=== PATIENT | male | born 1965 | race Caucasian/White ===

== ENCOUNTER → 2017-08-26 | Outpatient (CLI) | payer BC ==
[~2017-08-26] MED LIST: RT ADVAIR 228 DISKUS IH
== END ==
LOC: COL.LAB 15:06
DX: Z01.812 Encounter for preprocedural laboratory examination (principal)

== ENCOUNTER 2018-12-13 01:19 | Inpatient (IN) | payer BC ==
[~2018-12-13] VITALS: Ht 172.7 cm; Wt 90.0 kg
[2018-12-13] VITALS (17 sets, daily range): BP systolic 80–100; BP diastolic 48–63; PULSE 65–93; TEMP 70–99.7
[2018-12-13] MEDS ORDERED: LEVAQUIN 5500 MG/TA1 PO (01:30)
[2018-12-13] MEDS ORDERED: [UNRECOGNIZED DRUG - CODE] (01:31)
[2018-12-13] MEDS ORDERED: TRELEGY ELLIPT1 EACH IH (01:56)
[2018-12-13 01:59] LABS: MEAN CELL VOLUME 86 fl (80.0-100.0); MEAN CORPUSCULAR HGB CONC 32 g/dl (33.0-37.0); MEAN PLATELET VOLUME 9.1 fl (7.4-10.4); PLATELET COUNT 298 K/mm3 (130-400); RED BLOOD COUNT 2.73 M/mm3 (4.20-5.60); REDCELL DISTRIBUTION WIDTH-CV 15.1 % (11.5-14.5)
[2018-12-13 02:01] LABS: HEMATOCRIT 23.6 % (42.0-52.0); HEMOGLOBIN 7.6 g/dl (13.5-18.0); MEAN CORPUSCULAR HEMOGLOBIN 28 pg (27.0-31.0)
[2018-12-13 02:11] LABS: ALBUMIN 3.2 gm/dL (3.5-5.0); BILIRUBIN,TOTAL 0.2 mg/dL (0.0-1.0); CALCIUM 8.7 mg/dL (8.4-10.2); CREATININE, serum 1.39 (0.66-1.25); POTASSIUM 3.8 mmol/L (3.4-5.0); TOTAL PROTEIN 6.2 gm/dL (6.4-8.2)
[2018-12-13 02:27] LABS: BAND 12 % (0-10); BASOPHIL 1 % (0-2); EOSINOPHIL 5 % (0-4); LYMPHOCYTE 11 % (20.0-51.0); NEUTROPHILS 70 % (42.0-75.2)
[2018-12-13 02:28] LABS: HYPOCHROMIA 1+; PLATELET ESTIMATE NORMAL (NORMAL)
[2018-12-13 02:37] LABS: C-REACTIVE PROTEIN 30.8 mg/dL (0.0-0.9); ERYTHROCYTE SEDIMENTATION RATE 73 mm/hr (0-30)
[2018-12-13 03:57] LABS: COLLECTION METHOD CLEAN CATCH
[2018-12-13 04:11] LABS: MUCOUS Present /lpf; PH 5 (5-8); SQUAMOUS EPITHELIAL 0-2 /hpf; URINE APPEARANCE Clear; URINE BACTERIA None Seen /hpf; URINE BILIRUBIN Negative (NEGATIVE); URINE BLOOD Negative (NEGATIVE); URINE COLOR Yellow; URINE GLUCOSE Negative (NEGATIVE); URINE KETONE Negative (NEGATIVE); URINE LEUKOCYTE ESTERASE Negative (NEGATIVE); URINE NITRATE Negative (NEGATIVE); URINE PROTEIN(semi-quant) Negative (NEGATIVE); URINE RBC 0-2 /hpf; URINE UROBILINOGEN Negative (NEGATIVE)
--- NOTE | 2018-12-13 07:30 | NUR ---
PATIENT IS A&O. NOTED LOW B/P IN THE 80'S SYSTOLIC. NO TACHYCARDIA. AFEBRILE. 02 AT 4L PER NC WITH SATS IN UPPER 90'S. PATIENT IS SOB WITH ACTIVITY. PALE COLOR AND DIAPHORETIC. AM HGB OF 7.0. PATIENT REPORTS FEELING WEAK, TIRED AND CRAPPY. HOSPITALIST NOTIFIED. HEAD TO TOE ASSESSMENT COMPLETE. RIGHT HIP IS RED, SWOLLEN & TENDER TO TOUCH. NOTED PURULENT DRAINAGE, APPLIED NEW ABD & PAPER TAPE. POSITIVE PEDAL PULSES. PATIENT AMBULATES WITH STAND BY ASSIST. GIRLFRIEND AT BEDSIDE. NO OTHER NEEDS. CALL LIGHT IN REACH.
--- NOTE | 2018-12-13 09:00 | NUR ---
HOSPITALIST TEAM ROUNDING. SEE ORDERS.
--- NOTE | 2018-12-13 13:00 | NUR ---
BLOOD TRANSFUSION STARTED PER ORDERS. NOTED B/P OF 81/50. PATIENT ON 4L PER NC WITH SATS NOW AT 98%. DECREASED O2 TO 3L PER NC. OTHER VSS. PATIENT TOLERATING TRANSFUSION WELL SO FAR. FAMILY AT BEDSIDE.
[2018-12-13 16:01] LABS: HEMATOCRIT 22.6 % (42.0-52.0); HEMOGLOBIN 7.3 g/dl (13.5-18.0)
--- NOTE | 2018-12-13 17:30 | NUR ---
NOTED RIGHT HIP ABD TO HAVE MODERATE PURULENT DRAINAGE. APPLIED NEW ABD WITH PAPER TAPE. HIP SPIKA APPLIED FOR COMPRESSION. RIGHT HIP IS STILL VERY RED, SWOLLEN AND TENDER TO TOUCH. PATIENT RESTING UP IN BED. MOTHER AT BEDSIDE.
--- NOTE | 2018-12-13 18:25 | NUR ---
PATIENT VOIDED 300CC OF CLAY COLORED URINE USING URINAL AT BEDSIDE. PATIENT IS SOB FROM GETTING TO BEDSIDE AND REPOSITIONING HIMSELF BACK UP INTO BED. SATS IN LOW 90'S ON 3-4L PER NC, HR AT 103 WITH MINIMAL ACTIVITY. PATIENT IS C/O CHILLS. AFEBRILE. WARM BLANKETS APPLIED. IV ABX INFUSING. WILL MONITOR.
--- NOTE | 2018-12-13 19:20 | NUR ---
Report received from Barbie POLLOCK. Pt sitting up in bed. Family at bedside. Pt c/o generally feeling unwell. Denies specific pain, but states he has a baseline of "low grade" pain. Pt requesting Motrin. Pt also c/o chills. Pts temperature is 99.6 orally. Respirations are even and unlabored at rest. O2@ 4L via NC- Spo2 is 96%. Lungs are clear to auscultation. Heart rhythm and rte within normal limits. BS+. Abdomen is distended, but nontender. IVF infusing to L AC IV site. R hip dressing- ABD pad with paper tape and Hip Spika in place- purulent drainage noted to ABD pad. Pt denies further needs at this time.
--- NOTE | 2018-12-13 19:25 | NUR ---
Pt and family educated about getting second unit of blood per MD order. Pt educated to report any signs of transfusion reaction. Pt verbalized understanding. No questions noted. Blood consent form signed and witnessed.
--- NOTE | 2018-12-13 20:10 | NUR ---
Blood intiated per protocol. Verified with Marga POLLOCK. Initial VS recorded. Will stay in room for first 15 minutes.
--- NOTE | 2018-12-13 20:25 | NUR ---
Pt VSS after first 15 minutes of blood transfusion. Pts temperature is still slightly elevated at 99.5. Pt reports that chills have resolved, however. Pt denies pain or any other symptoms. Will continue to monitor. Blood infusion rate increased.
--- NOTE | 2018-12-13 21:00 | NUR ---
Pt continues to deny any symptoms with the blood transfusion. VSS. R hip dressing changed. Old R hip hip incision is weeping serous and purulent drainage. R hip hot to touch and very reddened. New ABD pad applied- secured with paper tape and hip spika. No further needs noted at this time.
--- NOTE | 2018-12-13 21:50 | NUR ---
Pt called out requesting to know his lab values. He is on the phone with a friend he identifies as a fellow MD. MD on phone is upset of patients care and that patient was not taken in for an I&D on his hip. The patient and family are concerned that the patients lab values indicate a "bad infection". Nurse provided reassurance that patient is receiving antibiotics. Pt and family requesting that the doctor csm consultant be contacted.
--- NOTE | 2018-12-13 21:55 | NUR ---
Suleiman TO called from auction block clerk calendar. Voicemail left.
--- NOTE | 2018-12-13 22:05 | NUR ---
Melanie VALADEZ contacted about patients concerns and to make her aware of the situation. Melanie told me to continue to try to get a hold of Orthopedics.
--- NOTE | 2018-12-13 22:07 | NUR ---
Suleiman TO returned phone call. He stated that the warehouse distribution associate calendar was incorrect and gave me the correct contact information.
--- NOTE | 2018-12-13 22:20 | NUR ---
Colton TO contacted about patients concerns. He stated that he would pass the information along and that the patient would be seen in the AM.
--- NOTE | 2018-12-13 22:23 | NUR ---
Second unit of PRBCs complete. No reaction noted. VSS. Well tolerated by patient. Patient also made aware of conversations with Orthopedics and Hospitalists. Patient and family verbalize understanding. No questions. Will continue to monitor.
[2018-12-14] VITALS (13 sets, daily range): BP systolic 83–144; BP diastolic 43–66; PULSE 67–96; TEMP 97.6–98.7
[2018-12-14 00:30] LABS: MEAN CELL VOLUME 87 fl (80.0-100.0); MEAN CORPUSCULAR HGB CONC 32 g/dl (33.0-37.0); MEAN PLATELET VOLUME 9.9 fl (7.4-10.4); PLATELET COUNT 331 K/mm3 (130-400); RED BLOOD COUNT 2.94 M/mm3 (4.20-5.60); REDCELL DISTRIBUTION WIDTH-CV 14.9 % (11.5-14.5)
[2018-12-14 00:32] LABS: HEMATOCRIT 25.5 % (42.0-52.0); HEMOGLOBIN 8.2 g/dl (13.5-18.0); MEAN CORPUSCULAR HEMOGLOBIN 28 pg (27.0-31.0)
--- NOTE | 2018-12-14 00:39 | NUR ---
Post tranfusion H&H results called to Melanie VALADEZ. No orders received.
[2018-12-14 01:16] LABS: BAND 26 % (0-10); EOSINOPHIL 4 % (0-4); LYMPHOCYTE 10 % (20.0-51.0); METAMYELOCYTE 1 % (0-0); NEUTROPHILS 52 % (42.0-75.2); PLATELET ESTIMATE NORMAL (NORMAL)
[2018-12-14 01:17] LABS: OVALOCYTES 1+
--- NOTE | 2018-12-14 03:40 | NUR ---
Pt resting in bed. Girlfriend at beside. VSS. Pt c/o headache 08/29-requesting motrin. No further needs noted.
--- NOTE | 2018-12-14 06:20 | NUR ---
Pt sleeping this AM. Girlfriend at bedside. No distress noted.
--- NOTE | 2018-12-14 06:50 | NUR ---
Report given to Janna POLLOCK. Upon entering pts room for bedside handoff, pt is sitting with HOB elevated. IV catheter is sitting on floor to the right of the bed. Catheter is intact. IVF are infusing onto the floor. Girlfriend at bedside states she just checked on him and it was ok. Bedding is also wet. Bed linens changed.
--- NOTE | 2018-12-14 07:00 | NUR ---
Supplies gathered to start new IV site on patient. Pt refuses IV start. States that he "doesn't need an IV yet". Pt states "if the doctor doesn't cut my hip open today, I am going home" and "I don't need to be here, if they aren't going to fix me and my hemoglobin is up". Pt states he is "just being rational". Pt requests to wait until MD rounds this AM and "decisions are made". Pt denies further needs. Passed on to Janna POLLOCK.
--- NOTE | 2018-12-14 07:27 | NUR ---
Dr Machado here to see patient.
--- NOTE | 2018-12-14 07:30 | NUR ---
Patient alert and oriented, answers questions appropriately. See assessment. Right hip with dressing clean, dry and intact. Neuros intact to RLE, pulses palpable. Able to bear weight to RLE. Patient continues to refuse IV restart, also wishes dressing to RLE not be changed at this time. No c/o pain or discomfort.
[2018-12-14 07:43] LABS: BASO % 0.3 % (0.0-2.0); EOS # 0.4 (0.0-0.7); GRAN # 4.2 (1.4-6.5); MEAN CELL VOLUME 87 fl (80.0-100.0); MEAN CORPUSCULAR HGB CONC 32 g/dl (33.0-37.0); MONO # 0.6 (0.1-0.6); MONO % 10.2 % (1.7-9.3); PLATELET COUNT 362 K/mm3 (130-400); RED BLOOD COUNT 3.07 M/mm3 (4.20-5.60)
[2018-12-14 07:47] LABS: HEMATOCRIT 26.6 % (42.0-52.0); HEMOGLOBIN 8.5 g/dl (13.5-18.0); MEAN CORPUSCULAR HEMOGLOBIN 28 pg (27.0-31.0)
[2018-12-14 07:50] LABS: CALCIUM 8.5 mg/dL (8.4-10.2); CREATININE, serum 1.01 (0.66-1.25); POTASSIUM 4.1 mmol/L (3.4-5.0)
--- NOTE | 2018-12-14 09:13 | NUR ---
ZENY met with the patient and patient's sister, Roro Maldonado, to discuss discharge plan. The patient lives in [place] with his girlfriend. He reports independence with ADLs and has crutches. 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 He receives his medications at [facility] and he reports no difficulties obtaining his meds. The patient does not have advanced directives in EMR, but he states that he does have them completed and that his DPOA-HC is his sister, Roro Maldonado. The patient plans to return home upon discharge. No additional needs at this time.
--- NOTE | 2018-12-14 11:16 | NUR ---
First visit from the youth worker. No needs right now.
--- NOTE | 2018-12-14 17:50 | NUR ---
Patient returns from PACU. Assessment unchanged except incision to right hip with Aquacel clean, dry and intact. Neuros intact to RLE, pulses palpable, no numbness or tingling noted. No c/o at this time.
--- NOTE | 2018-12-14 20:08 | NUR ---
Patient awake, numbness to lower extremities reported. Has IV antibiotic infusing to right forearm site without redness or swelling. Has oxygen on at 4L/nc. Dressing Aquacel to right hip D/I. SCD's on bilateral lower extremities. Family/friends at bedside.
--- NOTE | 2018-12-14 21:00 | NUR ---
Patient eating at this time. Reports numbness to bilateral lower legs. Does not want his Senna tonight.
--- NOTE | 2018-12-14 23:15 | NUR ---
Patient moving both feet, reports mild numbness remains. Oxygen turned down to 2L/nc. Reports he hasn't voided yet and has hx of needing straight cath after surgeries. IVF continue at 100cc/hr.
[2018-12-15] VITALS (11 sets, daily range): BP systolic 88–124; BP diastolic 47–65; PULSE 56–68; TEMP 97.4–98.3
--- NOTE | 2018-12-15 01:55 | NUR ---
BLADDER SCANNED FOR 748, PATIENT WANTS TO WAIT ON THE STRAIGHT CATH AT THIS TIME.
--- NOTE | 2018-12-15 02:30 | NUR ---
STRAIGHT CATH PERFORMED, RETURN OF 1000CC OF YELLOW URINE. PT TOLERATED WITHOUT PROBLEM.
--- NOTE | 2018-12-15 04:00 | NUR ---
Patient resting in bed. IV antibiotic infusing to right forearm site without redness or swelling. Denies need for pain meds at this time.
[2018-12-15 05:33] LABS: BASO % 0.2 % (0.0-2.0); GRAN # 3.9 (1.4-6.5); GRAN % 81.5 % (42.2-75.2); LYMPH # 0.3 (1.2-3.4); LYMPH % 6.8 % (20.0-51.0); MEAN CELL VOLUME 86 fl (80.0-100.0); MEAN CORPUSCULAR HGB CONC 32 g/dl (33.0-37.0); MONO # 0.5 (0.1-0.6); MONO % 10.4 % (1.7-9.3); PLATELET COUNT 318 K/mm3 (130-400); RED BLOOD COUNT 2.44 M/mm3 (4.20-5.60); REDCELL DISTRIBUTION WIDTH-CV 14.9 % (11.5-14.5)
[2018-12-15 05:35] LABS: CREATININE, serum 1.16 (0.66-1.25); POTASSIUM 4.1 mmol/L (3.4-5.0)
[2018-12-15 05:46] LABS: C-REACTIVE PROTEIN 19.9 mg/dL (0.0-0.9)
[2018-12-15 05:52] LABS: HEMOGLOBIN 6.8 g/dl (13.5-18.0); MEAN CORPUSCULAR HEMOGLOBIN 28 pg (27.0-31.0)
--- NOTE | 2018-12-15 05:57 | NUR ---
Notified Deric FERNANDEZ of patients HGB 6.8, orders for 1 unit of PRBC's given.
--- NOTE | 2018-12-15 08:00 | NUR ---
PATIENT IS DROWSY THIS MORNING BUT AROUSES EASILY TO NAME. PATIENT IS A&OX4. BP LOW, OTHERWISE VSS. PATIENT PALE AND STATES THAT HE FEELS WEAK. BOWEL SOUNDS ACTIVE ALL FOUR QUADRANTS. PATIENT TOLERATING DIET WITHOUT ANY COMPLAINTS OF N/V. POSITIVE PEDAL PULSES EQUAL BILATERALLY. 1+ PITTING-EDEMA TO BLE. CAP REFILL <3 SECONDS. CMS INTACT. SCD'S TO BLE. LEFT UPPER LUNG LOBES DIMINISHED UPON AUSCULTATION. ALL OTHER LUNG BANGURA CLEAR. PATIENT DENIES SHORTNESS OF BREATH OR A PRODUCTIVE COUGH. ABDOMEN IS DISTENDED BUT SOFT TO PALPATION. PATIENT PASSING FLATUS. ERYTHEMA TO RIGHT HIP NOTED. AQUACEL TO RIGHT HIP IS CD&I. IV FLUIDS INFUSING TO RIGHT FOREARM IV. CALL LIGHT WITHIN REACH. PRESENT AT THE BEDSIDE. PATIENT DENIES ANY NEEDS AT THIS TIME.
--- NOTE | 2018-12-15 09:00 | NUR ---
DR. ADDISON CALLED AND NOTIFIED OF ID CONSULT. NO ORDERS GIVEN AT THIS TIME.
--- NOTE | 2018-12-15 10:05 | NUR ---
CRITICAL VANCOMYCIN RESULT OF 25.81 CALLED TO YOUSUF CASEY. NO ORDERS GIVEN AT THIS TIME.
--- NOTE | 2018-12-15 10:15 | NUR ---
PATIENT STATES THAT HE FEELS THE URGE TO URINATE. PATIENT ATTEMPTED TO VOID IN THE URINAL WITHOUT SUCCESS. PATIENT BLADDER SCANNED. 999 MLS OF URINE PRESENT IN BLADDER. YOUSUF CASEY CALLED AND NOTIFIED OF BLADDER SCAN. ORDERS GIVEN TO STRAIGHT CATH PATIENT NOW TORB YOUSUF CASEY TO THIS NURSE.
--- NOTE | 2018-12-15 10:26 | NUR ---
PATIENT'S UNIT OF PRBC STARTED AND INFUSING TO PATIENT'S RIGHT FOREARM IV AT 60 MLS/HR. THIS NURSE PRESENT AT THE BEDSIDE FOR THE FIRST 15 MINUTES. PATIENT TOLERATING WELL. PATIENT DENIES ANY COMPLAINTS OF ADVERSE REACTION. WILL CONTINUE TO MONITOR.
--- NOTE | 2018-12-15 10:40 | NUR ---
PATIENT STRAIGHT CATHETERIZED VIA STERILE TECHNIQUE PER ORDERS FOR POST-OPERATIVE URINARY RETENTION. 1150 MLS OF CLEAR, PALE-YELLOW URINE RETURNED. PATIENT TOLERATED WELL.
--- NOTE | 2018-12-15 10:50 | NUR ---
PATIENT TOLERATING BLOOD TRANSFUSION WITHOUT ANY COMPLAINTS OF ADVERSE REACTIONS. INFUSION RATE INCREASED FROM 60 MLS/HR TO 125 MLS/HR.
--- NOTE | 2018-12-15 11:06 | NUR ---
PATIENT BLADDER SCANNED POST-STRAIGHT CATH. 168 MLS OF RESIDUAL URINE PRESENT IN BLADDER. YOUSUF CASEY CALLED AND NOTIFIED OF 1150 MLS OF URINE REMOVED DURING STRAIGHT CATH AND POST-CATH RESIDUAL. NO ORDERS GIVEN AT THIS TIME. WILL CONTINUE TO MONITOR.
--- NOTE | 2018-12-15 14:17 | NUR ---
PATIENT VOIDED 250 MLS OF CLEAR, PALE-YELLOW URINE POST STRAIGHT CATH. PATIENT BLADDER SCANNED FOR POST-VOID RESIDUAL. 184 MLS OF RESIDUAL URINE SCANNED IN BLADDER. YOUSUF CASEY NOTIFIED. NO ORDERS GIVEN AT THIS TIME. WILL CONTINUE TO MONITOR.
[2018-12-15 15:47] LABS: HEMATOCRIT 24.5 % (42.0-52.0); HEMOGLOBIN 7.9 g/dl (13.5-18.0)
--- NOTE | 2018-12-15 19:44 | NUR ---
REPORT GIVEN TO MARIS MUNOZ.
--- NOTE | 2018-12-15 20:30 | NUR ---
Patient rests in bed. Significant other present along with several visitors. Patient denies pain. Right hip dressing CDI. Right hip and thigh swollen/tight and encouraged ice and elevation. Ice pack and extra pillows given. Patient reports abdominal distention and voided 500mls clear yellow urine in urinal. Reports relief afterwards/declines PVR with bladder scan. Pepsi given.
--- NOTE | 2018-12-15 22:00 | NUR ---
HS meds all reviewed and given. Denies need for pain med. Transferred self to chair for awhile and significant other straightening linens and placed pillows for comfort on mattress. Patient transfers self without problems back to bed.
--- NOTE | 2018-12-16 02:00 | NUR ---
Patient called and reports something is wrong with his IV. Bing POLLOCK into see patient and noted IV RFA infiltrated slight redness and edema. IV dc'd without problems catheter tip intact and warm moist pack given but patient declined even with much encouragement. Reports bloated feeling and milk of mag given per patient request. Voided 500mls clear yellow urine and emptied. Encouraged elevation above heart and ice pack and patient declines.
[2018-12-16 04:54] VITALS: BP 100/54; PULSE 65; TEMP 97.9
[2018-12-16 05:34] LABS: CALCIUM 7.9 mg/dL (8.4-10.2); CREATININE, serum 1.29 (0.66-1.25); POTASSIUM 3.8 mmol/L (3.4-5.0)
[2018-12-16 05:37] LABS: MEAN CELL VOLUME 88 fl (80.0-100.0); MEAN CORPUSCULAR HGB CONC 32 g/dl (33.0-37.0); PLATELET COUNT 336 K/mm3 (130-400); RED BLOOD COUNT 2.66 M/mm3 (4.20-5.60); REDCELL DISTRIBUTION WIDTH-CV 15.1 % (11.5-14.5)
[2018-12-16 05:38] LABS: HEMATOCRIT 23.4 % (42.0-52.0); HEMOGLOBIN 7.5 g/dl (13.5-18.0); MEAN CORPUSCULAR HEMOGLOBIN 28 pg (27.0-31.0)
--- NOTE | 2018-12-16 06:09 | NUR ---
Patient rests on left side with eyes closed. Respirations with ease. Has denied need for pain med through the night. Juan R POLLOCKcustodial supervisor restarted 20 gauge IV to without problems.
--- NOTE | 2018-12-16 06:11 | NUR ---
Slight swelling noted to previous IV site RFA but no redness or pain.
[2018-12-16 07:20] VITALS: BP 96/53; PULSE 72; TEMP 97.9
[2018-12-16 11:27] LABS: BAND 5 % (0-10); EOSINOPHIL 8 % (0-4); HYPOCHROMIA 1+; LYMPHOCYTE 37 % (20.0-51.0); NEUTROPHILS 45 % (42.0-75.2); PLATELET ESTIMATE NORMAL (NORMAL)
[2018-12-16 12:46] VITALS: BP 114/64; PULSE 75; TEMP 97.9
[2018-12-16 19:26] VITALS: BP 126/65; PULSE 64; TEMP 97.5
--- NOTE | 2018-12-16 19:30 | NUR ---
END OF SHIFT NOTE. UPON ENTRY INTO THE PATIENT IS DROWSY AND RESTING IN BED. PATIENT AROUSES EASILY TO NAME. PATIENT IS A&OX4. VSS. ALL RIGHT LUNG BANGURA CLEAR UPON AUSCULTATION. ALL LEFT LUNG BANGURA DIMINISHED UPON AUSCULTATION. PATIENT DENIES SOB OR A PRODUCTIVE COUGH. BOWEL SOUNDS ACTIVE ALL FOUR QUADRANTS. PATIENT REFUSING MEALS THROUGHOUT DY SHIFT. PATIENT DENIES ANY COMPLAINTS OF N/V. ABDOMEN IS SLIGHTLY DISTENDED, BUT SOFT TO PALPATION. PATIENT REPORTS PASSING FLATUS AND IS HAVING BOWEL MOVEMENTS. PATIENT VOIDING PER URINAL WITHOUT ANY DIFFICULTIES. RIGHT HIP INCISION DRESSED WITH AN AQUACEL DRESSING WITH SCANT AMOUNT OF BLOODY SHADING PRESENT. ERYTHEMA NOTED AROUND AQUACEL DRESSING. ERYTHEMA IMPROVED FROM ASSESSMENT YESTERDAY AM. PATIENT'S RIGHT HIP AND UPPER LEG EDEMATOUS. 1+ PITTING-EDEMA TO RIGHT FOOT NOTED. NON-PITTING EDEMA TO LEFT FOOT. POSITIVE PEDAL PULSES EQUAL BILATERALLY. CAP REFILL <3 SECONDS. CMS INTACT. AYDE HOSE AND SCD'S TO BLE. PATIENT TEACHING COMPLETED ON THE USE OF ICE FOR THE RIGHT HIP AND ELEVATING THE EXTREMITY ON PILLOWS TO REDUCE SWELLING, PATIENT REFUSED. PATIENT STATES THAT HE FEELS WEAK THIS AM. IV FLUIDS INFUSING TO LEFT HAND IV VIA PUMP. PATIENT DENIES COMPLAINTS OF PAIN THROUGHOUT THE SHIFT. FAMILY PRESENT OFF AND ON DURING AM SHIFT. CALL LIGHT WITHIN REACH. REPORT GIVEN TO MARIS VALENTIN.
--- NOTE | 2018-12-16 20:00 | NUR ---
PT IN BED WITH HOB ELEVATED TO 45 DEGREE ANGLE. PT HAS C/O CONSTIPATION. PT'S RIGHT HIP AREA AQUACELL HAS LARGE AMOUNT OF DRAINAGE. DAYSHIFT NURSE STATED THAT IT IS QUIT ABITE MORE THAN EARLIER THIS SHIFT. RLE HAS 2+ EDEMA. PT DENIES PAIN OR DISCOMFORT FROM HIS RLE. NO NEEDS AT THIS TIME. CALL LIGHT WITHIN REACH.
--- NOTE | 2018-12-16 22:40 | NUR ---
PT'S DRSG ON RIGHT HIP WAS CHANGED. PT HAD A LARGE AMOUNT OF SANGUINEOUS DRAINAGE AND MOST OF THE STERI-STRIPS WERE INTACT. PT WAS GIVEN AN ENEMA EARLIER PER PT REQUEST FOR CONSTIPATION AND PT AMBULATED TO BATHROOM AND BACK TO BED. PT ADVISED THAT HE HAD A LARGE BM AND FEELS MUCH BETTER NOW. PT IN BED WITH HOB ELEVATED TO 45 DEGREE ANGLE. GIRLFRIEND AT BEDSIDE. CALL LIGHT WITHIN REACH.
[2018-12-16 23:53] VITALS: BP 100/60; PULSE 73; TEMP 98.5
[2018-12-17 04:02] VITALS: BP 96/52; PULSE 71; TEMP 98.8
--- NOTE | 2018-12-17 04:28 | NUR ---
PT SLEEP/RESTING WELL. PT HAD NASAL CANULA OUT OF NOSE; AND CHECKED O2 SATs AND O2 SATs AT 88% ON RA. PUT NASAL CANULA BACK INTO NOSTRILS AND O2 SATs WENT UP TO 92%. PT SOFTLY SNORES. PT BRIEFLY AWAKENED AND CLOSED BOTH EYES. PT HAS NO S/S OF PAIN OR DISCOMFORT, CALL LIGHT WITHIN REACH AND GIRLFRIEND BY SIDE.
[2018-12-17 05:30] LABS: BASO % 0.4 % (0.0-2.0); EOS # 0.4 (0.0-0.7); EOS % 6.4 % (0-4.0); GRAN # 3.5 (1.4-6.5); LYMPH % 17.5 % (20.0-51.0); MEAN CELL VOLUME 88 fl (80.0-100.0); MEAN CORPUSCULAR HGB CONC 32 g/dl (33.0-37.0); MEAN PLATELET VOLUME 9.5 fl (7.4-10.4); MONO # 0.7 (0.1-0.6); MONO % 11.6 % (1.7-9.3); PLATELET COUNT 344 K/mm3 (130-400); RED BLOOD COUNT 2.57 M/mm3 (4.20-5.60); REDCELL DISTRIBUTION WIDTH-CV 15.4 % (11.5-14.5)
[2018-12-17 05:41] LABS: C-REACTIVE PROTEIN 7.5 mg/dL (0.0-0.9); CREATININE, serum 1.17 (0.66-1.25); POTASSIUM 3.8 mmol/L (3.4-5.0)
[2018-12-17 05:42] LABS: HEMATOCRIT 22.6 % (42.0-52.0); HEMOGLOBIN 7.3 g/dl (13.5-18.0); MEAN CORPUSCULAR HEMOGLOBIN 28 pg (27.0-31.0)
[2018-12-17] MEDS ORDERED: CELEBREX 200MG200 MG PO (07:25)
[2018-12-17] MEDS ORDERED: ASPI325T6 PO (07:25)
--- NOTE | 2018-12-17 07:30 | NUR ---
THIS NURSE NOTIFIED THAT THE PATIENT IS BLEEDING THROUGH HIS AQAUCEL DRESSING. DRESSING REMOVED. EDGES WELL APPROXIMATED. DISTAL PORTION OF RIGHT HIP INCISON PALPATED AND BLED UPON PALPATION. 4X4 GAUZE & CYNTHIA WRAP APPLIED. YOUSUF SR CALLED AND MESSAGE LEFT. WILL WAIT FOR RESPONSE FROM PHYSICIAN WITH ORDERS. WILL CONTINUE TO MONITOR BLEEDING FROM RIGHT HIP INCISION.
--- NOTE | 2018-12-17 08:00 | NUR ---
UPON ENTRY INTO THE PATIENT IS DROWSY AND RESTING IN BED. PATIENT AROUSES EASILY TO NAME. PATIENT IS A&OX4. VSS. ALL RIGHT LUNG BANGURA AND LEFT UPPER LUNG LOBE CLEAR UPON AUSCULTATION. LEFT LUNG BASE DIMINISHED UPON AUSCULTATION. PATIENT DENIES SOB OR A PRODUCTIVE COUGH. BOWEL SOUNDS ACTIVE ALL FOUR QUADRANTS. PATIENT REFUSING MEALS THROUGHOUT THE SHIFT. PATIENT STATES THAT HE FEELS NAUSEATED BUT DENIES ANY COMPLAINTS OF VOMITING. ANTIEMETICS OFFERED AND REFUSED. ABDOMEN IS SLIGHTLY DISTENDED, BUT SOFT TO PALPATION. PATIENT REPORTS PASSING FLATUS AND IS HAVING BOWEL MOVEMENTS. PATIENT VOIDING PER URINAL WITHOUT ANY DIFFICULTIES. RIGHT HIP INCISION DRESSED WITH AN AQUACEL DRESSING WITH LARGE AMOUNTS OF BLOODY, SEEPING DRAINAGE PRESENT. ERYTHEMA NOTED AROUND AQUACEL DRESSING. AQUACEL DRESSING REMOVED AND REPLACED WITH 4X4 GAUZE, ABD PADS AND LARGE CYNTHIA WRAP PER ORTHO ORDERS. PATIENT'S RIGHT HIP AND RLE EDEMATOUS. 2+ PITTING-EDEMA TO RIGHT FOOT NOTED. NON-PITTING EDEMA TO BUE NOTED. POSITIVE PEDAL PULSES EQUAL BILATERALLY. CAP REFILL <3 SECONDS. CMS INTACT. AYDE JONN AND SCD'S TO BLE. PATIENT TEACHING COMPLETED ON THE USE OF ICE FOR THE RIGHT HIP AND ELEVATING THE EXTREMITY ON PILLOWS TO REDUCE SWELLING, PATIENT ALLOWED INTERVENTION THIS AM. PATIENT STATES THAT HE FEELS WEAK. PICC TO RUE. FAMILY AND FRIENDS PRESENT AT THE BEDSIDE THIS AM. PATIENT DENIES COMPLAINTS OF PAIN. CALL LIGHT WITHIN REACH. NO OTHER NEEDS AT THIS TIME.
[2018-12-17] MEDS ORDERED: CEFAZOLIN SODI100 ML IV (08:01)
[2018-12-17] MEDS ORDERED: NATURAL IRON65 MG PO (08:03)
[2018-12-17 08:36] VITALS: BP 118/67; PULSE 65; TEMP 97.9
[2018-12-17 12:27] VITALS: BP 115/61; PULSE 65; TEMP 98.3
--- NOTE | 2018-12-17 14:08 | NUR ---
The patient is in need of IV antibiotics. IV Ancef every eight hours for six weeks. ZENY met with the patient and patient's sister to discuss the options for IV antibiotics. Outpatient vs IV antibiotics at home. The patient reports that he would prefer to do them in the home. ZENY then informed and discussed the different infusion companies. The patient reports that he does not care or have a preference for infusion company. He states he just wants someone who can deliver them to his home. ZENY then contacted and faxed the patient's IV antibiotic order to [facility]. The patient was agreeable to [facility]. ZENY awaiting for them to run his benefits and confirm they can fill his order.
--- NOTE | 2018-12-17 14:34 | NUR ---
The patient's sister approached ZENY and informed ZENY that the patient actually just ordered his IV antibiotics and that they will be ready to be picked up in thirty minutes. ZENY contacted and updated Arnaud at [facility]. ZENY updated the hospitalist. No additional needs at this time.
--- NOTE | 2018-12-17 14:48 | NUR ---
ZENY met with the patient to confirm that he had his IV antibiotics ordered. The patient reports that he ordered his antibiotics from [facility] and that he plans to pick them up upon discharge from the hospital today, 12/17. No additional needs at this time.
--- NOTE | 2018-12-17 16:40 | NUR ---
PICC LINE CARE AND DISCHARGE INSTRUCTIONS REVIEWED WITH PATIENT AND FAMILY MEMBERS, EMPHASIS PLACED ON PROPER PICC CARE AND INFECTION PREVENTION. PATIENT PERSONAL BELONGINGS GATHERED. PATIENT AMBULATED WITH CRUTCHES AND SURGICAL STAFF TO PERSONAL VEHICLE. PATIENT DISCHARGED.
== END 2018-12-17 16:40 | disposition home or self-care (01) | DRG 467 ==
LOC: COL.ER 01:19 → SURG 03:18
PROVIDERS: Emergency Medicine; Internal Medicine; Nurse Practitioner; Orthopaedic Surgery Sports Medicine; Physician Assistant; ADMIT Hospitalist
PROC: 0SR90JZ Replacement of Right Hip Joint with Synthetic Substitute, Open Approach (ICD-10-PCS; principal; 2018-12-15)
PROC: 0SP90JZ Removal of Synthetic Substitute from Right Hip Joint, Open Approach (ICD-10-PCS; 2018-12-15)
PROC: 0SP909Z Removal of Liner from Right Hip Joint, Open Approach (ICD-10-PCS; 2018-12-15)
PROC: 0SU909Z Supplement Right Hip Joint with Liner, Open Approach (ICD-10-PCS; 2018-12-15)
PROC: 02HV33Z Insertion of Infusion Device into Superior Vena Cava, Percutaneous Approach (ICD-10-PCS; 2018-12-16)
DX: T84.51XA Infection and inflammatory reaction due to internal right hip prosthesis, initial encounter (principal); C34.90 Malignant neoplasm of unspecified part of unspecified bronchus or lung; N17.9 Acute kidney failure, unspecified; D62 Acute posthemorrhagic anemia; J45.909 Unspecified asthma, uncomplicated; F17.220 Nicotine dependence, chewing tobacco, uncomplicated; Z96.641 Presence of right artificial hip joint; B95.61 Methicillin susceptible Staphylococcus aureus infection as the cause of diseases classified elsewhere; Z90.2 Acquired absence of lung [part of]
CPT/HCPCS: 99223-AI; 99232-AI; 99239; A9284; C1751; C1776; C1892; J0690; J1100; J2250; J2405; J2543; J2704; J3010; J3370; J7030; J7050; J7120; P9016

== ENCOUNTER → 2018-12-19 | Outpatient (CLI) | payer BC ==
[~2018-12-19] MED LIST changes: +ASPI325T6 PO; +CEFAZOLIN SODI100 ML IV; +CELEBREX 200MG200 MG PO; +LEVAQUIN 5500 MG/TA1 PO; +NATURAL IRON65 MG PO; +TRELEGY ELLIPT1 EACH IH; +[UNRECOGNIZED DRUG - CODE]
[2018-12-19 10:35] LABS: HEMATOCRIT 25.7 % (42.0-52.0); HEMOGLOBIN 8.1 g/dl (13.5-18.0)
== END ==
LOC: COL.LAB 09:54 → COL.ER 09:54
PROVIDERS: Emergency Medicine
DX: D64.9 Anemia, unspecified (principal)

== ENCOUNTER 2019-02-02 08:00 | Outpatient (RCR) | payer BC ==
[2018-12-29 10:25] VITALS: BP 122/69; PULSE 81; TEMP 98.4
--- NOTE | 2019-01-05 08:45 | NUR ---
here for PICC cares. With sterile technique left upper arm PICC dressing change done with insertion site cleansed with ChloraPrep 1, chlorhexidine impregnated disc applied, skin prep, StatLock, and Tegaderm applied. Catheter changed. Good blood return noted. Extension set added. No signs or symptoms of IV complications noted. No concerns voiced. Patient to return next week for cares. Patient voiced understanding of instructions.
[2019-01-05 08:57] VITALS: BP 108/63; PULSE 83; TEMP 98.2
[2019-01-12 11:07] VITALS: BP 99/64; PULSE 85; TEMP 98.4
--- NOTE | 2019-01-19 08:45 | NUR ---
here for cares. With sterile technique left upper arm PICC dressing change done with insertion site cleansed with ChloraPrep x 1, chlorhexidine impregnated disc applied, skin prep, StatLock, and Tegaderm applied. No signs or symptoms of IV complications noted. No concerns voiced. Extension set added to and if catheter. Port flushed with 20 mL normal saline with good blood return noted. Patient to return next week for cares. Patient voiced understanding of instructions.
[2019-01-19 08:59] VITALS: BP 107/69; PULSE 79; TEMP 97.9
--- NOTE | 2019-01-26 09:05 | NUR ---
Here for PICC cares. with sterile technique left upper arm PICC dressing change done with insertion site cleansed with chloraprep x 1, chlorhexidine impregnated disk applied, skin prep, stat lock, and tegaderm applied. cap changed and flushed with 10ml normal saline with good blood return noted. extension set added and flushed with 10ml normal saline. extra tegaderm applied on top of dressing. wrapped with candie to protect catheter. to return next week for cares. voiced understanding of instructions.
[2019-01-26 09:21] VITALS: BP 110/53; PULSE 78; TEMP 98
[~2019-02-02] VITALS: Ht 172.7 cm; Wt 85.9 kg
[~2019-02-02 08:00] MED LIST changes: -[UNRECOGNIZED DRUG - CODE]; +[UNRECOGNIZED DRUG - OTHER] PO
[2019-02-02 10:15] VITALS: BP 105/66; PULSE 86; TEMP 98
--- NOTE | 2019-02-02 10:20 | NUR ---
Pt came out of room with candie wrap around L upper arm and stated he removed his PICC and it was in the trash in the room. Pt taken back to room and candie removed. Pt had paper towel over insertion site. Site covered with sterile 4x4 and tegaderm.
== END 2019-02-02 12:00 | disposition home or self-care (01) ==
LOC: EUO 08:00
DX: Z45.2 Encounter for adjustment and management of vascular access device (principal); Z96.641 Presence of right artificial hip joint; Z98.890 Other specified postprocedural states
CPT/HCPCS: C1751

== ENCOUNTER → 2019-05-03 | Outpatient (CLI) | payer BC | LOC: COL.RAD 07:27 | DX: Z01.812 Encounter for preprocedural laboratory examination (principal); Z01.810 Encounter for preprocedural cardiovascular examination; M43.16 Spondylolisthesis, lumbar region; M48.061 Spinal stenosis, lumbar region without neurogenic claudication; M47.816 Spondylosis without myelopathy or radiculopathy, lumbar region ==

== ENCOUNTER → 2019-05-23 | Outpatient (CLI) | payer BC | LOC: COL.RAD 07:04 | DX: Z00.6 Encounter for examination for normal comparison and control in clinical research program (principal); C34.90 Malignant neoplasm of unspecified part of unspecified bronchus or lung; M48.04 Spinal stenosis, thoracic region; Z96.643 Presence of artificial hip joint, bilateral; Z98.1 Arthrodesis status | CPT/HCPCS: Q9967 ==

== ENCOUNTER → 2020-11-29 | Outpatient (CLI) | payer BC ==
[~2020-11-29] MED LIST changes: +CUBICIN 500MG500 MG IV; +DUO-KAPS1 CAP PO; +FLOMAX 0.40.4 MG/CAP PO; +FOLIC ACID 11 MG/TA1 PO; +MAXIPIME2 GM IV; +THIAMINE 1100 MG/TAB PO; +VENTOLIN0.09 MG IH; +[UNRECOGNIZED DRUG - OTHER] PO; -[UNRECOGNIZED DRUG - OTHER] PO
== END ==
LOC: COL.RAD 14:24
DX: C34.90 Malignant neoplasm of unspecified part of unspecified bronchus or lung (principal)
CPT/HCPCS: Q9967

== ENCOUNTER 2021-04-03 16:13 | Inpatient (IN) | payer BC ==
[2021-04-03] VITALS (88 sets, daily range): BP systolic 95–106; BP diastolic 55–71; PULSE 78; TEMP 102.6–103.1; O2SAT 72–100
[~2021-04-03] VITALS: Ht 167.6 cm; Wt 92.0 kg
[~2021-04-03 16:13] MED LIST changes: -CUBICIN 500MG500 MG IV; -DUO-KAPS1 CAP PO; -FLOMAX 0.40.4 MG/CAP PO; -FOLIC ACID 11 MG/TA1 PO; -MAXIPIME2 GM IV; -THIAMINE 1100 MG/TAB PO; -VENTOLIN0.09 MG IH
[2021-04-03 17:42] LABS: BASO % 0.3 % (0.0-2.0); EOS % 0.2 % (0-4.0); GRAN # 5.5 (1.4-6.5); GRAN % 87.3 % (42.2-75.2); HEMOGLOBIN 11.8 g/dl (13.5-18.0); LYMPH # 0.2 (1.2-3.4); LYMPH % 3.4 % (20.0-51.0); MEAN CELL VOLUME 89 fl (80.0-100.0); MEAN CORPUSCULAR HEMOGLOBIN 30 pg (27.0-31.0); MEAN CORPUSCULAR HGB CONC 33 g/dl (33.0-37.0); MEAN PLATELET VOLUME 10.4 fl (7.4-10.4); MONO # 0.5 (0.1-0.6); PLATELET COUNT 204 K/mm3 (130-400); REDCELL DISTRIBUTION WIDTH-CV 13.5 % (11.5-14.5)
[2021-04-03 17:44] LABS: HEMATOCRIT 35.4 % (42.0-52.0)
[2021-04-03 17:54] LABS: ALBUMIN 3.9 gm/dL (3.5-5.0); BILIRUBIN,TOTAL 0.7 mg/dL (0.0-1.0); CALCIUM 8.7 mg/dL (8.4-10.2); CREATININE, serum 1.34 (0.66-1.25); TOTAL PROTEIN 7.2 gm/dL (6.4-8.2)
[2021-04-03 18:54] LABS: C-REACTIVE PROTEIN 39.6 mg/dL (0.0-0.9)
--- NOTE | 2021-04-03 21:30 | NUR ---
PT TO ICU ROOM 5. TRANSFERRED SELF FROM CART TO BED. A/O X4. FEBRILE. DENIES SOA. COMPLAINTS OF PAIN TO LEFT HIP RATING 10/10 WITH MOVEMENT. STATES WHEN STILL, PAIN IS 0. 3L O2 PER NC, PT STATES HOME O2 2L. ORIENTED TO BED AND SURROUNDINGS. GEORGE VALADEZ AT BEDSIDE.
[2021-04-03] MEDS ORDERED: VENTOLIN0.09 MG IH (21:57)
--- NOTE | 2021-04-03 23:33 | NUR ---
THIS RN SAW PT TAKING HOME MEDS. PT HAD HOME PTX PILLS IN MOUTH AND THIS RN ASKED PT SPIT OUT. PLACED BACK IN PTX BOTTLE AND PLACED IN BAG WITH ADDITION OF HOME ALBUTEROL INHALER. PT NOTED TO HAVE KENALOG VIAL IN BELONGINGS. THIS PLACED IN BAG WITH OTHER HOME MEDS. PT ALSO NOTED TO HAVE CHEWING TOBACCO IN MOUTH. THIS RN ASKED PT TO REMOVE AND PT UNDERSTANDS AND WILLING. CHEWING TOBACCO REMOVED FROM PTS BELONGINGS IN REACH AND PLACED IN HOME BELONGINGS OUT OF REACH IN CLOSET.
[2021-04-04] VITALS (387 sets, daily range): BP systolic 93–124; BP diastolic 44–67; PULSE 85–101; TEMP 99.2–102.4; O2SAT 57–100
[2021-04-04 03:47] LABS: COLLECTION METHOD CLEAN CATCH
[2021-04-04 03:57] LABS: MUCOUS Present /lpf; PH 5 (5-8); SQUAMOUS EPITHELIAL 0-2 /hpf; URINE APPEARANCE Cloudy; URINE BACTERIA Rare /hpf; URINE BILIRUBIN Negative (NEGATIVE); URINE BLOOD 1+ (NEGATIVE); URINE COLOR Yellow; URINE GLUCOSE Negative (NEGATIVE); URINE KETONE Negative (NEGATIVE); URINE LEUKOCYTE ESTERASE Negative (NEGATIVE); URINE NITRATE Negative (NEGATIVE); URINE PROTEIN(semi-quant) 1+ (NEGATIVE); URINE RBC 0-2 /hpf; URINE UROBILINOGEN Negative (NEGATIVE)
[2021-04-04 04:16] LABS: BASO % 0.2 % (0.0-2.0); EOS % 0.2 % (0-4.0); GRAN # 4.5 (1.4-6.5); HEMOGLOBIN 10.8 g/dl (13.5-18.0); LYMPH # 0.4 (1.2-3.4); LYMPH % 7.2 % (20.0-51.0); MEAN CELL VOLUME 89 fl (80.0-100.0); MEAN CORPUSCULAR HEMOGLOBIN 30 pg (27.0-31.0); MEAN CORPUSCULAR HGB CONC 34 g/dl (33.0-37.0); MEAN PLATELET VOLUME 9.9 fl (7.4-10.4); MONO # 0.8 (0.1-0.6); MONO % 14.2 % (1.7-9.3); PLATELET COUNT 160 K/mm3 (130-400); RED BLOOD COUNT 3.58 M/mm3 (4.20-5.60); REDCELL DISTRIBUTION WIDTH-CV 13.5 % (11.5-14.5)
[2021-04-04 04:17] LABS: HEMATOCRIT 31.9 % (42.0-52.0)
[2021-04-04 04:29] LABS: CALCIUM 8.1 mg/dL (8.4-10.2); CREATININE, serum 1.47 (0.66-1.25); POTASSIUM 3.8 mmol/L (3.4-5.0)
--- NOTE | 2021-04-04 05:37 | NUR ---
PT A/O X4. FEBRILE THROUGHOUT THE NIGHT, PRN TYLENOL AND IBUPROFEN GIVEN DOCUMENTED IN MAR. COMPLAINTS OF PAIN IN LEFT HIP BUT STATES IMPROVING. PRN NORCO AND DILAUDID GIVEN DOCUMENTED IN MAR. REDNESS/SCAB NOTED TO PREVIOUS INCISION TO LEFT HIP. REDNESS OUTLINED. PT HAD DIFFUCULTY VOIDING AND INITIALLY REFUSED STRAIGHT CATH BUT AGREEABLE WHEN STILL UNABLE TO VOID. PT MOVES IN BED FREQUENTLY AND WILL DANGLE. PT REMOVED IV TO LEFT AC WHILE MOVING, RESTARTED IN RIGHT HAND. PT ON 3L PER NC, HOME O2 2L. CALL LIGHT WITHIN REACH. BED ALARM ON.
--- NOTE | 2021-04-04 10:30 | NUR ---
DR. LEIJA HERE FOR HIP ASPIRATION WITH ULTRASOUND. SPECIMEN WILL BE SENT TO LAB.
--- NOTE | 2021-04-04 11:35 | NUR ---
Patient goes to Xray at this time for hip aspiration of left hip joint.
--- NOTE | 2021-04-04 12:11 | NUR ---
Patient returns from Radiology at this time.
[2021-04-04 12:57] LABS: SYNOVIAL FLUID APPEARANCE TURBID; SYNOVIAL FLUID COLOR AMBER
[2021-04-04 14:07] LABS: SYNOVIAL FLUID RBC 50000 /mm3 (0-0)
[2021-04-04 14:09] LABS: SYNOVIAL FLUID WBC 237850 /mm3 (200-600)
--- NOTE | 2021-04-04 15:45 | NUR ---
PICC PLACED BY MARIS PRESLEY
--- NOTE | 2021-04-04 16:03 | NUR ---
Patient has not voided since last straight cath. Bladder scan done and 350 ml seen in bladder. Patient requests that I wait to place adams catheter. Dr. Zeng gave verbal order to place adams cath if unable to void. Will continue to wait and rescan patient in one hour.
--- NOTE | 2021-04-04 16:50 | NUR ---
Patient goes to MRI. Temp prior to leaving was 103.1. Tylenol and Dilaudid were given prior to leaving. Patient will go to room 327 after MRI is finished.
--- NOTE | 2021-04-04 18:26 | NUR ---
PT TO FLOOR WITH REPORT FROM [facility] POLL[facility] ICU. PT IS A/O X4, INTERMITTANTLY ALTERED. VOIDED 500 MLS OF CONCENTRATED URINE PRIOR TO PT REFUSING CATHETER PLACEMENT,
--- NOTE | 2021-04-04 18:29 | NUR ---
DR. TOBAR IN TO SEE PT. SEE ORDERS.
--- NOTE | 2021-04-04 18:58 | NUR ---
RECEIVED CHANGE OF SHIFT FROM DAY SHIFT NURSE.
--- NOTE | 2021-04-04 20:00 | NUR ---
OBSERVED LEFT INNER LOWER FOREARM PERIPHERAL IV INNER CATHETER PARTIALLY ADVANCED OUT OF INSERTION SITE WITH NO REDNESS OBSERVED, NO DRAINAGE OBSERVED.
--- NOTE | 2021-04-04 21:33 | NUR ---
PATIENT REPORTED HE HAD DISCONNECTED IV LINE FROM RED PICC LINE PORT AND TURNED OFF BARD PUMP DELIVERING IV ANTIBIOTIC. REMINDED PATIENT TO NOT DISCONNECT IV MEDS FROM IV LINE AFTER OBSERVING PICC LINE CAP OFF FROM RED PORT. NEW CENTRAL LINE CAP APPLIED TO RED PICC PORT/FLUSHED WITH 10 ML STERILE SALINE PLER HOSP P/P WITH NO PROBLEMS AND BLOOD PRESENT WHEN CHECKED FOR PATENCY. PATIENT VERBALIZED UNDERSTANDING NOT TO DISCONNECT IV MEDS FROM IV LINES.
[2021-04-05] VITALS (20 sets, daily range): BP systolic 91–145; BP diastolic 50–90; PULSE 62–93; TEMP 97.4–98.5
--- NOTE | 2021-04-05 01:49 | NUR ---
VIVIENNE WALL FROM [facility] CALLED WITH RESULTS OF 2ND BATCH OF BLOOD CULTURE: POSITIVE FOR STAPH. NICHOLAS CHICAS PRODUCT SAFETY TESTER OF BLOOD CULTURE RESULTS.
--- NOTE | 2021-04-05 03:32 | NUR ---
PATIENT FOUND BY STAFF PCT WITH PATIENT HAVING PULLED OUT PICC LINE, OBSERVED PICC CATHETER LAYING ON OVER BED TABLE WITH CATHETER INTACT AT 40 MARAH AND OBSERVED NO BREAKAGE OF CATHETER TIP OR UNEVEN CATHETER TIP EDGES. PRESSURE WAS APPLIED TO PREVIOUS PICC SITE AND 4X4 GAUZE APPLIED WITH TEGADERM TO COVER DRSG AND REWRAPPED WITH CYNTHIA BANDAGE. PATIENT STATED HE WOKE UP SWEATY AND INDICATED THAT HE HAD REMOVED HIS GOWN, OBSERVED TELE UNIT ALSO LAYING NEXT TO REMOVED PICC CATHETER.
--- NOTE | 2021-04-05 06:57 | NUR ---
CHANGE OF SHIFT REPORT GIVEN TO DAY SHIFT NURSE, GLORIA POLLOCK.
--- NOTE | 2021-04-05 08:10 | NUR ---
Patient in bed sleeping arouses to voice. Alert and oriented x 3. Assessment complete. Previous PICC line site to MAICO with gauze and tegaderm dressing in place. Denies pain at this time. Denies further needs at this time.
--- NOTE | 2021-04-05 08:50 | NUR ---
Notified Dr. Zeng, O2 needs increased from 3L to 6L per RT. Patient shaking, SOA. No new orders at this time. Yoon POLLOCK in for PICC line placement.
--- NOTE | 2021-04-05 09:30 | NUR ---
Dr. Griffiths in to see patient.
--- NOTE | 2021-04-05 10:30 | NUR ---
Patient to [facility] by bed.
--- NOTE | 2021-04-05 11:35 | NUR ---
Patient back from [facility] by bed. Post op VSS. Denies needs at this time.
[2021-04-05 13:37] LABS: BASO % 0.2 % (0.0-2.0); GRAN # 3.9 (1.4-6.5); GRAN % 81.7 % (42.2-75.2); LYMPH # 0.4 (1.2-3.4); MEAN CELL VOLUME 88 fl (80.0-100.0); MEAN CORPUSCULAR HGB CONC 34 g/dl (33.0-37.0); MEAN PLATELET VOLUME 10.7 fl (7.4-10.4); MONO # 0.5 (0.1-0.6); MONO % 9.7 % (1.7-9.3); PLATELET COUNT 173 K/mm3 (130-400); RED BLOOD COUNT 3.32 M/mm3 (4.20-5.60); REDCELL DISTRIBUTION WIDTH-CV 13.9 % (11.5-14.5)
[2021-04-05 13:40] LABS: CALCIUM 8.5 mg/dL (8.4-10.2); CREATININE, serum 1.72 (0.66-1.25); MAGNESIUM 2.1 mg/dL (1.6-2.3)
[2021-04-05 13:47] LABS: HEMATOCRIT 29.2 % (42.0-52.0); HEMOGLOBIN 9.9 g/dl (13.5-18.0); MEAN CORPUSCULAR HEMOGLOBIN 30 pg (27.0-31.0)
--- NOTE | 2021-04-05 15:09 | NUR ---
Batch Mixer met with patient and patient's friend, Augusta (ph#[phone]) to discuss discharge planning. Patient lives in [place] and utilizes Dr. De Anda for primary care. Patient reports he obtains medications from [facility] and utilizes home oxygen. Patient states he does not have Advance Directives and is not interested in completing them at this time. SW discussed need for IV antibiotics at time of discharge. 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 Patient does not have a preference on infusion company and also declined any need for home health nursing services. SW contacted Taylor at [facility] and faxed referral. SW awaiting [facility]'s screen and final antibiotic recommendations.
--- NOTE | 2021-04-05 15:20 | NUR ---
Patient to OR by bed.
--- NOTE | 2021-04-05 17:30 | NUR ---
Patient back to room from OR by bed. Alert and oriented x 3. Remains on 3L of O2 via NC. Post op VSS. Post op fluids infusing per orders to MAICO PICC line. Hemovac to left hip, foam dressing to left hip. Patient unable to feel sensation to BLE d/t spinal block. Denies additional needs at this time.
--- NOTE | 2021-04-05 18:38 | NUR ---
Patient doing well post op. Denies pain at this time. Reported off to maintenance technician 2nd shift.
--- NOTE | 2021-04-05 22:42 | NUR ---
Patient alert and oriented. Left hip I&D site has foam dressing in place. Dressing C/D/I. Hemovac in place and draining bloody drainage. Right upper arm PICC site dressing C/D/I. IVF infusing per MAR. Patient reports pain to his left hip and requesting PRN Dilaudid. PRN Dilaudid given per MAR. VS stable. All scheduled meds given per SEP. Call light in reach. Will continue to monitor.
[2021-04-06] VITALS (8 sets, daily range): BP systolic 108–135; BP diastolic 57–73; PULSE 63–96; TEMP 97.9–101.1
--- NOTE | 2021-04-06 02:32 | NUR ---
Patient awake around 02:15 am when this nurse enter the room. Patient appears confused. Patient got up from bed and gather all his belongings (cell phone, construction rigger, bag) and pulled out wallet from bag. Patient holding his the wallet in his hands and said, "I'm hungry, let's go to [place]." Re-oriented patient to the room. Assisted patient to lay back down in the bed. Call light in reach. Bed alarms on. Will continue to monitor.
--- NOTE | 2021-04-06 03:01 | NUR ---
Pt. set off bed alarm. Upon entering the room, Pt. was sitting up in bed and PICC line was laying on the floor. See PICC removal documentation. YOUSUF Rapp and house notified.
--- NOTE | 2021-04-06 03:34 | NUR ---
Patient's right upper arm PICC site C/D/I. No s/s of infection. Covered wtih 4x4 gauze and wrapped with coban adhesive dressing. Call light in reach. Bed-alarms on. Will continue to monitor.
--- NOTE | 2021-04-06 05:59 | NUR ---
Patient very confused and agitated. Patient moving aound in bed a lot and keeps getting up from bed and trying to get out of the room. Patient states, "This is not my room, I want to go to different room." Frequently re-oriented patient to the room. PRN Ativan given at 05:42 am for agitation. Call light in reach. Bed alarms on.
[2021-04-06 09:14] LABS: BASO % 0.3 % (0.0-2.0); EOS % 0.3 % (0-4.0); GRAN # 2.8 (1.4-6.5); GRAN % 82.1 % (42.2-75.2); LYMPH # 0.3 (1.2-3.4); LYMPH % 8.2 % (20.0-51.0); MEAN CELL VOLUME 89 fl (80.0-100.0); MEAN CORPUSCULAR HGB CONC 33 g/dl (33.0-37.0); MEAN PLATELET VOLUME 10.5 fl (7.4-10.4); MONO # 0.3 (0.1-0.6); MONO % 8.8 % (1.7-9.3); PLATELET COUNT 162 K/mm3 (130-400); RED BLOOD COUNT 3.01 M/mm3 (4.20-5.60); REDCELL DISTRIBUTION WIDTH-CV 14.2 % (11.5-14.5)
[2021-04-06 09:15] LABS: HEMATOCRIT 26.8 % (42.0-52.0); HEMOGLOBIN 8.9 g/dl (13.5-18.0); MEAN CORPUSCULAR HEMOGLOBIN 30 pg (27.0-31.0)
--- NOTE | 2021-04-06 09:43 | NUR ---
[facility] CALLED AND NOTIFIED
[2021-04-06 10:53] LABS: ARTERIAL BLD GAS O2 SATURATION 84.4 % (92-100); ARTERIAL BLD GAS TCO2 CT 24.1; ARTERIAL BLOOD GAS BASE EXCESS -2.7 (-2-2); ARTERIAL BLOOD GAS HCO3 22.8 meq/L (22-26); ARTERIAL BLOOD GAS PCO2 42.6 mmHg (35-45); ARTERIAL BLOOD GAS PO2 61.2 mmHg (80-100); ARTERIAL BLOOD GAS pH 7.35 (7.35-7.45)
--- NOTE | 2021-04-06 22:52 | NUR ---
PT INCONTINENT. TAKES BIPAP OFF ON OCCASION. ARGUMENTATIVE AT TIMES BUT CALMS QUICKLY. RETURNS TO SLEEP AT THIS TIME. BIPAP IN PLACE.
--- NOTE | 2021-04-06 23:30 | NUR ---
[id number] PT AWAKE. VERY AGGITATED. PULLING TELE OFF. ATTEMPTING TO PULL IV OUT. CALLED SECURITY. PT OUT OF BED. SWINGING FIST AT STAFF. USING PROFANITIES. SEE MAR FOR ATIVAN GIVEN BY FERNANDO POLLOCK. PT BACK IN BED AFTER ATIVAN STARTING TO WORK. TELE BACK ON. IVF'S STARTED AGAIN. BIPAP BACK ON. BED ALARM SET. PT CHECKED ON FREQUENTLY.
[2021-04-07] VITALS (12 sets, daily range): BP systolic 106–154; BP diastolic 56–87; PULSE 66–108; TEMP 97.2–101.3
--- NOTE | 2021-04-07 00:14 | NUR ---
NOTIFIED MARCIN TO OF PT'S STATUS AND TEMP SEE NEW ORDER.
--- NOTE | 2021-04-07 00:30 | NUR ---
CLARIFIED IVF RATE AND TYLENOL SUPP DOSE. SEE NEW ORDERS. PT RESTING NOW. BIPAP ON. TYLENOL SUPP GIVEN FOR 101.1 AX TEMP.
--- NOTE | 2021-04-07 02:59 | NUR ---
PT CONTINUES RESTING AT THIS ITME WITH BIPAP IN PLACE.
--- NOTE | 2021-04-07 03:55 | NUR ---
PT AWKE. REFUSED PO VALIUM. BECOMING AGITATED. SEE MAR FOR ATIVAN 1MG GIVEN.
--- NOTE | 2021-04-07 04:15 | NUR ---
PT RESTING WITH BIPAP IN PLACE. TEMP DECREASED TO 98.3 AX.
[2021-04-07 05:14] LABS: ARTERIAL BLD GAS O2 SATURATION 96.4 % (92-100); ARTERIAL BLD GAS TCO2 CT 25.7; ARTERIAL BLOOD GAS BASE EXCESS -0.8 (-2-2); ARTERIAL BLOOD GAS HCO3 24.4 meq/L (22-26); ARTERIAL BLOOD GAS PCO2 42.4 mmHg (35-45); ARTERIAL BLOOD GAS PO2 101.8 mmHg (80-100); ARTERIAL BLOOD GAS pH 7.38 (7.35-7.45)
[2021-04-07 07:41] LABS: BASO % 0.3 % (0.0-2.0); EOS # 0.1 (0.0-0.7); EOS % 1.9 % (0-4.0); GRAN # 2.8 (1.4-6.5); GRAN % 74.8 % (42.2-75.2); LYMPH # 0.5 (1.2-3.4); MEAN CELL VOLUME 91 fl (80.0-100.0); MEAN CORPUSCULAR HGB CONC 33 g/dl (33.0-37.0); MEAN PLATELET VOLUME 11.5 fl (7.4-10.4); MONO # 0.4 (0.1-0.6); MONO % 9.5 % (1.7-9.3); PLATELET COUNT 205 K/mm3 (130-400); RED BLOOD COUNT 2.49 M/mm3 (4.20-5.60); REDCELL DISTRIBUTION WIDTH-CV 14.6 % (11.5-14.5)
[2021-04-07 07:45] LABS: HEMATOCRIT 22.7 % (42.0-52.0); HEMOGLOBIN 7.4 g/dl (13.5-18.0); MEAN CORPUSCULAR HEMOGLOBIN 30 pg (27.0-31.0)
[2021-04-07 07:53] LABS: CALCIUM 8.2 mg/dL (8.4-10.2); CREATININE, serum 2.23 (0.66-1.25); MAGNESIUM 2.2 mg/dL (1.6-2.3); POTASSIUM 4.2 mmol/L (3.4-5.0)
[2021-04-07 08:35] LABS: C-REACTIVE PROTEIN 33.3 mg/dL (0.0-0.9)
--- NOTE | 2021-04-07 08:59 | NUR ---
Patient resting in bed. made aware of drowsyness. Valium DC. Vanc stopped per Traci in pharmacy. Nephrology consult called to . Ivf per orders to [facility]. Bipap on, RT did breathing treatment. With 2 CLINCHING MACHINE OPERATOR assist patient provided with full bed bath, fresh linens, oral swabs for oral cares. High fall risk protocol followed.
--- NOTE | 2021-04-07 10:11 | NUR ---
rounded. Incontinence care provided. He remains drowsy. His neighbor/friend at bedside, her questions answered.
--- NOTE | 2021-04-07 11:06 | NUR ---
removed Cpap. Replaced. He remains drowsy, supportive friends at bedside.
--- NOTE | 2021-04-07 11:35 | NUR ---
Ativan Iv given per detox scale. Patient irritated. Incontinece care provided. rounded. Orders for CT scan obtained & consult called to
--- NOTE | 2021-04-07 11:45 | NUR ---
Ortho rounded. Per her recommendations hip insision cleansed with betadine & aquacell dressing applied
--- NOTE | 2021-04-07 16:46 | NUR ---
Patient has rested well this afternoon. Friend remains at bedside. rounded. Plan of care reviewed. Patient continues to rest comfortably. He is having a fever. Tylenol supossitory per orders.
--- NOTE | 2021-04-07 16:56 | NUR ---
made aware of elevated temp, blood cultures orders obtained.
--- NOTE | 2021-04-07 17:24 | NUR ---
Removed Bipap. States "this thing sucks". I talked with Gilda in RT and let her know I placed patient on O2 via Nasal Cannula to given him a break from Bipap, he has worn most of the day.
--- NOTE | 2021-04-07 17:46 | NUR ---
Patient more awake and is requesting a coke. Spoke with Tamela Yates, she verified I could give him some sips of water (aspiration precautions in place). No aspiration noted with water. Patient falls back asleep easy. His visitor nigel supportive at bedside.
--- NOTE | 2021-04-07 19:00 | NUR ---
Spoke with Tamela Yates, I discussed the concerns of herpes outbreak. Valtrex ordered per the patient and the friend request. Dinner ordered per his request of maria e and daylin. He only ate a few bites. Patient continues to have temp, air turned down & blanket removed & sheet provided.temp not 99.1. Cpap remains off while he attempts to eat. Patient sister Lisa, ALYCIA is expected to arrive this evening to assist with desision making. Bedside report to Jennifer.
--- NOTE | 2021-04-07 20:00 | NUR ---
SISTER WERNER AT BEDSIDE. HAS SEVERAL QUESTIONS FOR DOCTORS. NOTIFIED MARCIN TO. SHE WILL COME VISIT WITH SISTER ALYCIA. PT RESTING QUIETLY AT THIS TIME. O2 AT 4LNC O2 SATS 94%. NO DISTRESS. PT REMIAINS IN ISOLATION FOR MRSA.
[2021-04-08] VITALS (12 sets, daily range): BP systolic 112–139; BP diastolic 63–84; PULSE 58–87; TEMP 97.7–98.5
--- NOTE | 2021-04-08 01:11 | NUR ---
PT CONTINUES RESTING QUIETLY. NO AGRESSIVE BEHAVIOR TONIGHT. VERY SLEEPY. O2 SAT MAIANTAIN MID 90'2 WITH O2 5L NC. NO DISTRESS.
--- NOTE | 2021-04-08 01:56 | NUR ---
PT MORE ALERT AND AWAKE. ASKING QUESTIONS. PT CALM AT THIS TIME. NO RESP DISTRESS. ASKING FOR CHEWING TOBACCO AND A CELL PHONE THAT WORKS. CALL LIGHT IN REACH. BED ALARM SET.
--- NOTE | 2021-04-08 01:58 | NUR ---
PT REPOSITIONS SELF FOR COMFORT.
--- NOTE | 2021-04-08 02:32 | NUR ---
PT VERY AGITIATED. WANTS CLOTHES TO GO HOME AND A RIDE. SEE MAR FOR ATIVAN GIVEN.
--- NOTE | 2021-04-08 02:35 | NUR ---
RT HERE. PLACED BIPAP AFTER RT SVN TX.
--- NOTE | 2021-04-08 03:02 | NUR ---
PT RESATING QUIETLY WITH BIPAP ON.
--- NOTE | 2021-04-08 04:43 | NUR ---
PT AWAKE. VERY AGITATED. TAKING OFF BIPAP. REFUSING O2 NC . PULLING AT TELE . SEE MAR FOR ATIVAN GIVEN. BIPAP BACK ON AFTER SETTLES.
--- NOTE | 2021-04-08 05:40 | NUR ---
PT CRAWLED OUT OF BED. URINATING ALL OVER FLOOR. PT AGITATED AND ASSISTED BACK TO BED. PT IN RESP DISTRESS. HAD PULLED OFF BIPAP. SEE MAR FOR ATIVAN GIVEN. BIPAP BACK ON. IV SITE REDRESSED.
--- NOTE | 2021-04-08 06:00 | NUR ---
PT RESTING WITH BIPAP IN PLACE. LAB AND RADIOLOGY HERE.
[2021-04-08 06:34] LABS: BASO % 0.2 % (0.0-2.0); GRAN # 4.3 (1.4-6.5); GRAN % 87.5 % (42.2-75.2); LYMPH # 0.2 (1.2-3.4); LYMPH % 4.7 % (20.0-51.0); MEAN CELL VOLUME 95 fl (80.0-100.0); MEAN CORPUSCULAR HGB CONC 32 g/dl (33.0-37.0); MEAN PLATELET VOLUME 10.5 fl (7.4-10.4); MONO # 0.4 (0.1-0.6); MONO % 7.2 % (1.7-9.3); PLATELET COUNT 303 K/mm3 (130-400); RED BLOOD COUNT 3.27 M/mm3 (4.20-5.60); REDCELL DISTRIBUTION WIDTH-CV 14.5 % (11.5-14.5)
[2021-04-08 06:35] LABS: HEMATOCRIT 31.1 % (42.0-52.0); HEMOGLOBIN 9.8 g/dl (13.5-18.0); MEAN CORPUSCULAR HEMOGLOBIN 30 pg (27.0-31.0)
--- NOTE | 2021-04-08 07:00 | NUR ---
Report received from MARIS Rodriguez. PT in bed sleeping with bipap in place, will continue to monitor.
[2021-04-08 08:42] LABS: ALBUMIN 3.2 gm/dL (3.5-5.0); CALCIUM 8.6 mg/dL (8.4-10.2); CREATININE, serum 2.01 (0.66-1.25); PHOSPHOROUS 4.5 mg/dL (2.5-4.5); POTASSIUM 4.4 mmol/L (3.4-5.0)
--- NOTE | 2021-04-08 09:25 | NUR ---
Taylor, at [facility], reports that they ran the patient's benefits and the patient is covered at 100% for the antibiotic.
--- NOTE | 2021-04-08 09:58 | NUR ---
Assessment charted. Pt remains sleepy and lethargic but cooperative and able to get over to cart for MRI this am. Neighbor here sititng in room, per neighbor sister and DPOA Lisa will hopefully be able to return today but in the mean time it has been helpful to have her here, will clarify with booth supervisor and continue to monitor. Pt has some drainage to aquacel on L hip, and healing wound to heel. VSS. Griffiths here and Luis Carlos but pt resting peacefully, will continue to monitor.
--- NOTE | 2021-04-08 11:41 | NUR ---
SW attended clinical rounds. The patient's neighbor, Augusta, at bedside. The patient's sister, Cleo, was on speaker phone. They were unable to obtain an MRI this morning, due to the patient's movements. The patient has been agitated this morning and was dosed Ativan. The patient remains sedated and on the bipap. SW to continue to follow.
--- NOTE | 2021-04-08 16:22 | NUR ---
Pt awake and mobile, found by County Demonstrator Georgie to be in bathroom. Resting on toilet having bowel movement, was able to void. Post void bladder scan only revealed 91 mls/hr. Pt doing well, still trying to get out of here and calling family and friends for ride home. Discussed plan of care and need to remain until we can help set up outpatient antibiotics. Pt currently agreeable, Georgie also discussed need to keep ONLY 1 VISITOR FOR PT STAY but sister and DPOA Lisa, and neighbor has been here today. They are both aware of the policy and state tehy understand but yet have disgregarded it. Bed alarm on, will conitnue to monitor.
--- NOTE | 2021-04-08 17:20 | NUR ---
Contacted Hafsa TO, patient agitated, attempting to get up out of bed. Neighbor at bedside. Girlfriend on phone attempting to calm patient down. New order for haldol, medication given per orders.
--- NOTE | 2021-04-08 18:36 | NUR ---
Pt resting in bed, neighbor continues to visit, brought pt supper, he is eating. Discussed plan for patient's PAC and OP antibioticsx4 this afternoon since pt has been awake. Pt able to redirect and remains in bed. PRN haldol given over shift as needed for agitaiton, per neighbor and sister pt is often like this. Will give report to nightshift nruse who will resume care.
--- NOTE | 2021-04-08 19:16 | NUR ---
RECEIVED CHANGE OF SHIFT REPORT FROM DAY SHIFT NURSE. VISITOR/NEIGHBOR-JAMAR AT BEDSIDE. CONTACT ISOLATION STATUS IN PLACE.
--- NOTE | 2021-04-08 19:40 | NUR ---
WHEN ASKED PATIENT DENIES NOT DOING INCENTIVE SPIROMETER. PATIENT RESTING IN BED, OXYGEN NOT IN PLACE TO NARES BUT TUBING LOOPED AROUND EARS, PATIENT REMINDED TO WEAR OXYGEN.
[2021-04-09 03:33] VITALS: BP 110/66; PULSE 52; TEMP 97.3
--- NOTE | 2021-04-09 06:08 | NUR ---
went to speak to pt, nurse present in the room. informed pt that dr davidson wanted an mri of his brain. pt refused until dr davidson has come to see him and talk it over with him, the pt.
[2021-04-09 07:22] VITALS: BP 130/80; PULSE 49; TEMP 97.5
[2021-04-09 11:04] LABS: BASO % 0.2 % (0.0-2.0); EOS % 0.2 % (0-4.0); GRAN # 4.3 (1.4-6.5); GRAN % 84.6 % (42.2-75.2); LYMPH # 0.3 (1.2-3.4); LYMPH % 6.2 % (20.0-51.0); MEAN CELL VOLUME 93 fl (80.0-100.0); MEAN CORPUSCULAR HGB CONC 32 g/dl (33.0-37.0); MEAN PLATELET VOLUME 10.2 fl (7.4-10.4); MONO # 0.4 (0.1-0.6); MONO % 8.2 % (1.7-9.3); PLATELET COUNT 344 K/mm3 (130-400); RED BLOOD COUNT 2.94 M/mm3 (4.20-5.60); REDCELL DISTRIBUTION WIDTH-CV 14.3 % (11.5-14.5)
[2021-04-09 11:06] LABS: HEMATOCRIT 27.4 % (42.0-52.0); HEMOGLOBIN 8.7 g/dl (13.5-18.0); MEAN CORPUSCULAR HEMOGLOBIN 30 pg (27.0-31.0)
[2021-04-09 11:14] LABS: CALCIUM 8.5 mg/dL (8.4-10.2); CREATININE, serum 1.72 (0.66-1.25); POTASSIUM 3.9 mmol/L (3.4-5.0)
--- NOTE | 2021-04-09 11:17 | NUR ---
PT UP INDEPENDENTLY AMA. REMINDED PT TO CALL WHEN GETTING UP. PT REPLIED OK. PTS FRIEND JAMAR HERE AND PT IS VERY COMPLIANT AT THIS TIME. PT DID REFUSE INITIAL LAB DRAWS THIS AM AND THEN COOPERATED. ALEENA ANDRES UPDATED AND GAVE MESSAGE TO CALL DR. REID AFTER ROUNDS. DR JOSE IN TO SEE PT THIS AM. PLAN ON DISCHARGE LATER TODAY OR TOMORROW IF CLEARED.
[2021-04-09 11:34] VITALS: BP 135/79; PULSE 57; TEMP 97.4
[2021-04-09] MEDS ORDERED: THIAMINE 1100 MG/TAB PO (13:17)
[2021-04-09] MEDS ORDERED: DUO-KAPS1 CAP PO (13:17)
[2021-04-09] MEDS ORDERED: FOLIC ACID 11 MG/TA1 PO (13:17)
[2021-04-09] MEDS ORDERED: CUBICIN 500MG500 MG IV ×2 (13:18→13:28)
[2021-04-09 16:00] VITALS: BP 141/80; PULSE 72; TEMP 97.8
--- NOTE | 2021-04-09 16:33 | NUR ---
SW attended clinical rounds. The patient is alert and oriented today. ID is recommending IV Dapto, once a day for 6 weeks. The patient would like to pursue with getting the IV antibiotics at home. The doctor is ordering and recommending that if the patient is wanting home IV antibiotics, that the patient must have home health for PICC Line Care. SW met with the patient to discuss the recommendation. The patient was open to home health, but would rather do the PICC line care as outpatient and would like to know the out-of- pocket costs for home health. He was open for SW to send a referral to [facility]. ZENY contacted and faxed a referral to Nandini at [facility]. Nandini and Radha report that since the patient has [employer], they will have to check his benefits and will then contact ZENY back. ZENY contacted and faxed the patient's Dapto script to Radha at [facility]. Awaiting home health referral and delivery of IV antibiotics to his home.
--- NOTE | 2021-04-09 18:51 | NUR ---
report to Maritza dominguez.
[2021-04-09 19:59] VITALS: BP 130/89; PULSE 68; TEMP 97.4
[2021-04-10 04:18] VITALS: BP 122/59; PULSE 64; TEMP 98.4
--- NOTE | 2021-04-10 05:17 | NUR ---
Resting quietly, telemetry in use, call terrazas w/i reach, VS stable, will continue to monitor.
[2021-04-10 05:53] LABS: EOS # 0.1 (0.0-0.7); EOS % 1.6 % (0-4.0); GRAN # 2.8 (1.4-6.5); GRAN % 74.6 % (42.2-75.2); LYMPH # 0.4 (1.2-3.4); LYMPH % 10.3 % (20.0-51.0); MEAN CELL VOLUME 94 fl (80.0-100.0); MEAN CORPUSCULAR HGB CONC 31 g/dl (33.0-37.0); MEAN PLATELET VOLUME 10.5 fl (7.4-10.4); MONO # 0.5 (0.1-0.6); MONO % 12.2 % (1.7-9.3); PLATELET COUNT 297 K/mm3 (130-400); RED BLOOD COUNT 2.74 M/mm3 (4.20-5.60); REDCELL DISTRIBUTION WIDTH-CV 14.3 % (11.5-14.5)
[2021-04-10 05:55] LABS: HEMATOCRIT 25.8 % (42.0-52.0); HEMOGLOBIN 8.1 g/dl (13.5-18.0); MEAN CORPUSCULAR HEMOGLOBIN 30 pg (27.0-31.0)
[2021-04-10 06:05] LABS: CALCIUM 8.2 mg/dL (8.4-10.2); CREATININE, serum 1.76 (0.66-1.25); POTASSIUM 3.4 mmol/L (3.4-5.0)
[2021-04-10 08:00] VITALS: BP 128/50; BP 136/61; PULSE 55; PULSE 76; TEMP 98.7; TEMP 98.9
--- NOTE | 2021-04-10 09:07 | NUR ---
PT UP INDEPENDENTLY IN ROOM DR. REID IN TO SEE PT THIS AM. PLAN ON DISCHARGE LATER TODAY. WILL HAVE OUT PT ABX THROUGH DR. REID'S OFFICE AND THEY WILL MANAGE PICC LINE.
[2021-04-10] MEDS ORDERED: FLOMAX 0.40.4 MG/CAP PO (09:47)
--- NOTE | 2021-04-10 10:59 | NUR ---
Shanta, floor scraper, notified ZENY that Dr. Aldridge has accepted to follow the patient and provide PICC Care in the outpatient setting for the patient, so that home health is not needed. ZENY then contacted Radha, at [facility], to follow up on the IV Dapto. Radha reports that the IV Dapto will be delivered to the patient's home today. She states that she was able to talk to the patient and he informed her that he would actually prefer home health now. ZENY followed up with Bryanna at [facility]. Bryanna reports that they got approval from the patient's insurance and they are able to accept the patient. ZENY met with the patient and his friend to update. The patient is in agreement to the plan. The patient is to discharge today, 04/10, with home health services for senior living from [facility] for his IV antibiotics and PICC Care. ZENY notified and faxed d/c orders to Bryanna at [facility]. No additional needs at this time.
--- NOTE | 2021-04-10 11:00 | NUR ---
SPOKE WITH DR. VALLES AND GAVE UPDATE. HE IS OK WITH DISCHARGE PLANS.
--- NOTE | 2021-04-10 12:49 | NUR ---
DISCHARGE INSTRSUCTIONS REVIEWED WITH PT AND GIRLFRIEND. SPECIFIC DIRECTIONS FOR PICC LINE CARE REVIEWED. PT HAD NO QUESTIONS. PICC LINE INFORMATION ALSO GIVEN TO [facility]. PT LEFT UNIT BY WHEEL CHAIR AND LEFT POV.
== END 2021-04-10 12:40 | disposition home health service (06) | DRG 871 ==
LOC: COL.ER 16:13 → ICU 19:39 → SURG 19:39 → MEDICAL 04-08 09:53 → SURG 04-10 12:40
PROVIDERS: Emergency Medicine; Internal Medicine Nephrology; Nurse Practitioner Family; Orthopaedic Surgery Sports Medicine; Physician Assistant; ADMIT Internal Medicine
PROC: 0S9D3ZZ Drainage of Left Knee Joint, Percutaneous Approach (ICD-10-PCS; 2021-04-04)
PROC: 02HV33Z Insertion of Infusion Device into Superior Vena Cava, Percutaneous Approach (ICD-10-PCS; 2021-04-04)
PROC: 02HV33Z Insertion of Infusion Device into Superior Vena Cava, Percutaneous Approach (ICD-10-PCS; 2021-04-05)
PROC: 0Y9D3ZZ Drainage of Left Upper Leg, Percutaneous Approach (ICD-10-PCS; principal; 2021-04-05 17:00)
PROC: 02HV33Z Insertion of Infusion Device into Superior Vena Cava, Percutaneous Approach (ICD-10-PCS; 2021-04-09)
DX: A41.9 Sepsis, unspecified organism (principal); G92 Toxic encephalopathy; N17.9 Acute kidney failure, unspecified; J96.11 Chronic respiratory failure with hypoxia; R65.20 Severe sepsis without septic shock; R33.9 Retention of urine, unspecified; N18.9 Chronic kidney disease, unspecified; D64.9 Anemia, unspecified; I05.9 Rheumatic mitral valve disease, unspecified
CPT/HCPCS: 99223-AI; 99233-AI; 99239; C1751; C1892; J0696; J0878; J1170; J1630; J1644; J1720; J2060; J2250; J2704; J3010; J3370; J7030; J7050; J7120

== ENCOUNTER → 2021-04-15 | Outpatient (CLI) | payer BC ==
[~2021-04-15] MED LIST changes: +CUBICIN 500MG500 MG IV; +DUO-KAPS1 CAP PO; +FLOMAX 0.40.4 MG/CAP PO; +FOLIC ACID 11 MG/TA1 PO; +MAXIPIME2 GM IV; +THIAMINE 1100 MG/TAB PO; +VENTOLIN0.09 MG IH
[2021-04-15 14:24] LABS: BASO % 0.4 % (0.0-2.0); EOS # 0.2 (0.0-0.7); EOS % 3.3 % (0-4.0); GRAN # 3.8 (1.4-6.5); GRAN % 72.5 % (42.2-75.2); LYMPH # 0.5 (1.2-3.4); LYMPH % 10.4 % (20.0-51.0); MEAN CELL VOLUME 93 fl (80.0-100.0); MEAN CORPUSCULAR HGB CONC 32 g/dl (33.0-37.0); MEAN PLATELET VOLUME 10.6 fl (7.4-10.4); MONO # 0.6 (0.1-0.6); MONO % 12.4 % (1.7-9.3); PLATELET COUNT 458 K/mm3 (130-400); RED BLOOD COUNT 2.96 M/mm3 (4.20-5.60)
[2021-04-15 14:25] LABS: HEMATOCRIT 27.5 % (42.0-52.0); HEMOGLOBIN 8.7 g/dl (13.5-18.0); MEAN CORPUSCULAR HEMOGLOBIN 29 pg (27.0-31.0)
[2021-04-15 14:35] LABS: ALBUMIN 2.7 gm/dL (3.5-5.0); BILIRUBIN,TOTAL 0.2 mg/dL (0.2-1.2); C-REACTIVE PROTEIN 15.5 mg/dL (0.00-0.50); CALCIUM 8.8 mg/dL (8.4-10.2); CREATININE, serum 1.8 mg/dL (0.72-1.25); POTASSIUM 4.1 mmol/L (3.5-4.5); TOTAL PROTEIN 6.8 gm/dL (6.2-8.1)
[2021-04-15 15:18] LABS: ERYTHROCYTE SEDIMENTATION RATE 123 mm/hr (0-30)
== END ==
LOC: COL.LAB 14:11
PROVIDERS: Internal Medicine
DX: Z01.89 Encounter for other specified special examinations (principal)

== ENCOUNTER → 2021-04-24 | Outpatient (CLI) | payer BC ==
[2021-04-24 15:11] LABS: BASO % 0.5 % (0.0-2.0); EOS # 0.2 K/mm3 (0.0-0.7); EOS % 3.1 % (0-4.0); GRAN % 73.6 % (42.2-75.2); LYMPH # 0.7 K/mm3 (1.2-3.4); LYMPH % 12.2 % (20.0-51.0); MEAN CELL VOLUME 92 fl (80.0-100.0); MEAN CORPUSCULAR HGB CONC 32 g/dl (33.0-37.0); MEAN PLATELET VOLUME 9.3 fl (7.4-10.4); MONO # 0.6 K/mm3 (0.1-0.6); MONO % 10.2 % (1.7-9.3); PLATELET COUNT 443 K/mm3 (130-400); RED BLOOD COUNT 3.18 M/mm3 (4.20-5.60); REDCELL DISTRIBUTION WIDTH-CV 13.8 % (11.5-14.5)
[2021-04-24 15:16] LABS: HEMATOCRIT 29.2 % (42.0-52.0); HEMOGLOBIN 9.2 g/dl (13.5-18.0); MEAN CORPUSCULAR HEMOGLOBIN 29 pg (27.0-31.0)
[2021-04-24 15:31] LABS: ERYTHROCYTE SEDIMENTATION RATE > 140 mm/hr (0-30)
== END ==
LOC: COL.LAB 14:49
PROVIDERS: Orthopaedic Surgery Sports Medicine
DX: M25.552 Pain in left hip (principal)

== ENCOUNTER 2021-04-25 08:32 | Day surgery (SDC) | payer BC ==
[~2021-04-25] VITALS: Ht 170.2 cm; Wt 86.5 kg
[2021-04-25] VITALS (10 sets, daily range): BP systolic 97–122; BP diastolic 57–74; PULSE 77–85; TEMP 98–98.2
[~2021-04-25 08:32] MED LIST changes: -MAXIPIME2 GM IV
--- NOTE | 2021-04-25 14:00 | NUR ---
Patient here for surgical procedure. PICC is present in his right upper arm. Dressing is not intact. Dressing is not dated. Right upper arm PICC dressing change done with sterile technique with insertion site cleansed with ChloraPrep x1, chlorhexidine impregnated disc applied, skin prep, StatLock, and Tegaderm applied. Cap changed. Port flushed with 10 mL normal saline without resistance or difficulty with good blood return noted. Patient reported that he missed his last appointment with [facility] for PICC cares due to being out of town.
--- NOTE | 2021-04-25 15:45 | NUR ---
arrived in room per bed from PACU, awake and alert and sitting up in bed talking to staff, wound vac intact and draining well, dressing to left hip with soundvac foam and is intact, IV infusing per gravity to right PICC, denies pain or needs at this time, full assessment completed, see interventions for further info
--- NOTE | 2021-04-25 16:15 | NUR ---
remains awake and talking on phone, denies any needs
--- NOTE | 2021-04-25 16:30 | NUR ---
instructed on ordering something to eat, verbalizes understanding, is ready to take a nap and lights off
--- NOTE | 2021-04-25 16:39 | NUR ---
Wound Vac order place to [facility]. Physician order form placed on the patients chart and nursing staff notified.
--- NOTE | 2021-04-25 17:14 | NUR ---
remains awake and talking on phone
--- NOTE | 2021-04-25 18:52 | NUR ---
sitting up in bed eating, bedside shift report given to MARIS Ziegler
--- NOTE | 2021-04-25 21:16 | NUR ---
Patient assessed. Denies pain and discomfort. PICC to RUE, fluids D/C'd. Wound vac to left hip CDI. Reports feeling better today, and was able to eat 100% of supper. Voices no questions, needs, or concerns at this time. Asked if visitor had come to drop off medications yet. No medications have been dropped off at this time. Reminded that since visiting hours are now over, visitor would not be able to bring medications up to patient, but could leave them with the door screener in ER and this nurse will get them and bring them to him. Voiced understanding. Resting in bed with call light wtihin reach.
[2021-04-26 04:39] VITALS: BP 97/59; PULSE 79; TEMP 98.2
--- NOTE | 2021-04-26 05:47 | NUR ---
Patient has not had any negative behaviors towards staff this shift. Has been compliant and cooperative with cares. Has been using bedside urinal. Labs obatined from PICC this morning. On oxygen at 2 L/min via NC, as patient states he wears oxygen at night only. Someone did bring in chemo medications, and they were brought to patient's room. Wound Vac to left hip CDI. Voices no questions, needs, or concerns at this time. Resting in bed with call light within reach.
[2021-04-26 06:43] LABS: BASO % 0.3 % (0.0-2.0); EOS # 0.1 K/mm3 (0.0-0.7); EOS % 1.7 % (0-4.0); GRAN # 2.5 K/mm3 (1.4-6.5); GRAN % 69.6 % (42.2-75.2); LYMPH # 0.6 K/mm3 (1.2-3.4); LYMPH % 16.3 % (20.0-51.0); MEAN CELL VOLUME 94 fl (80.0-100.0); MEAN CORPUSCULAR HGB CONC 31 g/dl (33.0-37.0); MEAN PLATELET VOLUME 10.1 fl (7.4-10.4); MONO # 0.4 K/mm3 (0.1-0.6); MONO % 12.1 % (1.7-9.3); PLATELET COUNT 419 K/mm3 (130-400); RED BLOOD COUNT 2.55 M/mm3 (4.20-5.60); REDCELL DISTRIBUTION WIDTH-CV 13.7 % (11.5-14.5)
[2021-04-26 06:49] LABS: HEMOGLOBIN 7.5 g/dl (13.5-18.0); MEAN CORPUSCULAR HEMOGLOBIN 29 pg (27.0-31.0)
[2021-04-26 07:52] LABS: ALBUMIN 2.7 gm/dL (3.5-5.0); BILIRUBIN,TOTAL 0.1 mg/dL (0.2-1.2); CALCIUM 8.7 mg/dL (8.4-10.2); CREATININE, serum 1.27 mg/dL (0.72-1.25); POTASSIUM 4.1 mmol/L (3.5-4.5)
[2021-04-26 08:20] VITALS: BP 111/65; PULSE 68; TEMP 97.6
--- NOTE | 2021-04-26 10:00 | NUR ---
Patient alert and oriented, answers questions appropriately. See assessment. Wound vac in place to left hip, suction appropriate, scant drainage noted in canister. Limited ROM to left hip. No c/o pain or discomfort. No other c/o at this time.
--- NOTE | 2021-04-26 10:22 | NUR ---
The surgeon signed the Wound Vac therapy insurance auth form. ZENY faxed the signed form to [employer]. ZENY met with the patient to discuss discharge plan. The patient lives alone in [place]. He reports independence with ADLs and has a walking stick, walker, and wheelchair. The patient's PCP is Dr. Fabiano De Anda and he receives his medications from [facility]. The patient does not have a DPOA-HC in EMR, but he states that he does have one completed and that it designates his sister, Lisa Maldonado (ph#[phone]). The patient plans to return home upon discharge. The patient recently discharged from the hospital, 04/10, and returned home with home IV antibiotics, from [facility] and home health services for snf from [facility]. The patient reports that he is still receiving services from [facility] to assist with his home IV antibiotics. He plans on resuming their services upon discharge. ZENY contacted [employer] to check the status of the order. The accounts payable representative reports that they have received the order and they are working on getting auth from insurance. The rep reports that she will reach out to the liason that is working on the patient's order and have them contact this SW for an update. ZENY updated the patient's RN on the above. ZENY also encouraged the patient to get in contact with his insurance, to help move along the auth process. The patient verbalized understanding and ZENY provided him with [employer] service phone number. Awaiting auth for the wound vac. *Discharge plan: home with home health*
[2021-04-26 11:30] VITALS: BP 120/60; PULSE 65; TEMP 97.8
--- NOTE | 2021-04-26 15:37 | NUR ---
Deidre liason from [employer], contacted ZENY. Deidre reports that insurance is just requesting ortho's notes from the patient's I&D back on 04/05. She report that once they receive the note and get it to insurance, they should be able to release the wound vac for approval. ZENY faxed and emailed the patient's I&D note to Deidre at [employer]. The community development coordinator then notified ZENY that the patient has [employer] on the phone and he wants ZENY to talk to them. ZENY met with the patient. A rep from [employer] was on the line. The rep connected Deidre to the phone call. Deidre updated the patient on the above. She reports that she has received the I&D note and should be able to release the wound vac soon. ZENY then received approval from [employer] for the wound vac. ZENY notified the patient's RN and Long Line Teamster. Long Line Teamster provided ZENY and the patient's RN with the home wound vac. ZENY presented the patient with the Proof of Delivery Form from [employer]. The patient signed the form. ZENY provided him with a copy and placed a copy in the patient's chart. ZENY faxed the Proof of Delivery Form back to [employer]. The patient is to discharge back home today, 04/26, with a wound vac and will resume services from [facility] for snf. ZENY notified Tyrone at [facility] of the patient discharging back home today. No additional needs at this time.
--- NOTE | 2021-04-26 16:22 | NUR ---
Discharge instructions reviewed with patient, verbalized understanding. Discharged via wheelchair to auto/home with family. Wound Vac in place on discharge. Wound vac, canister and foam dressing sent with patient. PICC in place to [facility] upon discharge. Discharged at 1600.
--- NOTE | 2021-04-29 09:53 | NUR ---
[facility] reports that they have not received a copy of the order. Patient's dc orders were not written with services. Dr. barboza office contacted and the nurse will get with the doctor.
== END 2021-04-26 16:00 | disposition home or self-care (01) ==
LOC: SDCO 08:32 → COL.RAD 08:32 → EDSTATUS 08:45 → COL.RAD 08:45 → INPTSU 13:26 → SURG 16:00 → INPTSU 16:00 → SDCO 04-26 16:00
PROVIDERS: Orthopaedic Surgery Sports Medicine
DX: T81.30XA Disruption of wound, unspecified, initial encounter (principal); M25.552 Pain in left hip; C49.9 Malignant neoplasm of connective and soft tissue, unspecified; C34.90 Malignant neoplasm of unspecified part of unspecified bronchus or lung; D84.81 Immunodeficiency due to conditions classified elsewhere; Z20.822 Contact with and (suspected) exposure to COVID-19; J96.11 Chronic respiratory failure with hypoxia; F17.220 Nicotine dependence, chewing tobacco, uncomplicated; J45.909 Unspecified asthma, uncomplicated; T48.6X6A Underdosing of antiasthmatics, initial encounter; T45.8X6A Underdosing of other primarily systemic and hematological agents, initial encounter; T44.6X6A Underdosing of alpha-adrenoreceptor antagonists, initial encounter; T43.4X6A Underdosing of butyrophenone and thiothixene neuroleptics, initial encounter; T39.396A Underdosing of other nonsteroidal anti-inflammatory drugs [NSAID], initial encounter; T45.2X6A Underdosing of vitamins, initial encounter; T47.4X6A Underdosing of other laxatives, initial encounter; T43.596A Underdosing of other antipsychotics and neuroleptics, initial encounter; T45.516A Underdosing of anticoagulants, initial encounter; Z91.128 Patient's intentional underdosing of medication regimen for other reason; Z79.2 Long term (current) use of antibiotics; Z79.899 Other long term (current) drug therapy; Z99.81 Dependence on supplemental oxygen
CPT/HCPCS: OP; A6550; J0878; J1100; J2405; J2704; J3010; J7120

== ENCOUNTER → 2021-05-01 | Outpatient (CLI) | payer BC ==
[~2021-05-01] MED LIST changes: +MAXIPIME2 GM IV
[2021-05-01 17:26] LABS: BASO % 0.4 % (0.0-2.0); EOS # 0.2 K/mm3 (0.0-0.7); EOS % 4.7 % (0-4.0); GRAN % 64.2 % (42.2-75.2); LYMPH # 0.8 K/mm3 (1.2-3.4); LYMPH % 17.6 % (20.0-51.0); MEAN CELL VOLUME 91 fl (80.0-100.0); MEAN CORPUSCULAR HGB CONC 32 g/dl (33.0-37.0); MEAN PLATELET VOLUME 9.5 fl (7.4-10.4); MONO # 0.6 K/mm3 (0.1-0.6); MONO % 12.3 % (1.7-9.3); PLATELET COUNT 447 K/mm3 (130-400); RED BLOOD COUNT 3.14 M/mm3 (4.20-5.60); REDCELL DISTRIBUTION WIDTH-CV 14.1 % (11.5-14.5)
[2021-05-01 17:38] LABS: ALBUMIN 3.2 gm/dL (3.5-5.0); BILIRUBIN,TOTAL 0.2 mg/dL (0.2-1.2); C-REACTIVE PROTEIN 9.7 mg/dL (0.00-0.50); CALCIUM 9.3 mg/dL (8.4-10.2); CREATININE, serum 1.15 mg/dL (0.72-1.25); POTASSIUM 3.6 mmol/L (3.5-4.5); TOTAL PROTEIN 7.8 gm/dL (6.2-8.1)
[2021-05-01 17:47] LABS: ERYTHROCYTE SEDIMENTATION RATE > 140 mm/hr (0-30)
[2021-05-01 17:48] LABS: HEMATOCRIT 28.7 % (42.0-52.0); HEMOGLOBIN 9.1 g/dl (13.5-18.0); MEAN CORPUSCULAR HEMOGLOBIN 29 pg (27.0-31.0)
== END ==
LOC: ZCOL.LAB 15:45
PROVIDERS: Family Medicine
DX: Z01.89 Encounter for other specified special examinations (principal)

== ENCOUNTER → 2021-05-07 | Outpatient (CLI) | payer BC ==
[2021-05-07 17:27] LABS: BASO % 0.5 % (0.0-2.0); EOS # 0.3 K/mm3 (0.0-0.7); GRAN # 4.3 K/mm3 (1.4-6.5); GRAN % 72.1 % (42.2-75.2); LYMPH # 0.9 K/mm3 (1.2-3.4); LYMPH % 14.2 % (20.0-51.0); MEAN CELL VOLUME 89 fl (80.0-100.0); MEAN CORPUSCULAR HGB CONC 32 g/dl (33.0-37.0); MEAN PLATELET VOLUME 9.8 fl (7.4-10.4); MONO # 0.5 K/mm3 (0.1-0.6); MONO % 7.5 % (1.7-9.3); PLATELET COUNT 418 K/mm3 (130-400); RED BLOOD COUNT 3.05 M/mm3 (4.20-5.60)
[2021-05-07 17:32] LABS: HEMOGLOBIN 8.7 g/dl (13.5-18.0); MEAN CORPUSCULAR HEMOGLOBIN 29 pg (27.0-31.0)
[2021-05-07 17:43] LABS: ALBUMIN 3.1 gm/dL (3.5-5.0); BILIRUBIN,TOTAL 0.2 mg/dL (0.2-1.2); C-REACTIVE PROTEIN 11.3 mg/dL (0.00-0.50); CALCIUM 8.7 mg/dL (8.4-10.2); CREATININE, serum 1.17 mg/dL (0.72-1.25); POTASSIUM 3.7 mmol/L (3.5-4.5); TOTAL PROTEIN 6.9 gm/dL (6.2-8.1)
[2021-05-07 18:03] LABS: ERYTHROCYTE SEDIMENTATION RATE 120 mm/hr (0-30)
== END ==
LOC: ZCOL.LAB 15:09
PROVIDERS: Family Medicine
DX: Z01.89 Encounter for other specified special examinations (principal)

== ENCOUNTER 2021-05-30 10:45 | Inpatient (IN) | payer BC ==
[~2021-05-30] VITALS: Ht 170.2 cm; Wt 101.1 kg
[~2021-05-30 10:45] MED LIST changes: -MAXIPIME2 GM IV
[2021-05-30 11:37] VITALS: BP 141/52; PULSE 94; TEMP 99.9
[2021-05-30 15:43] VITALS: BP 101/51; PULSE 87; TEMP 103.2
[2021-05-30 17:25] LABS: BASO % 0.5 % (0.0-2.0); EOS # 0.1 K/mm3 (0.0-0.7); EOS % 1.1 % (0-4.0); GRAN # 3.1 K/mm3 (1.4-6.5); GRAN % 70.7 % (42.2-75.2); HEMATOCRIT 22.2 % (42.0-52.0); HEMOGLOBIN 7.4 g/dl (13.5-18.0); LYMPH # 0.6 K/mm3 (1.2-3.4); LYMPH % 12.7 % (20.0-51.0); MEAN CELL VOLUME 85 fl (80.0-100.0); MEAN CORPUSCULAR HEMOGLOBIN 28 pg (27.0-31.0); MEAN CORPUSCULAR HGB CONC 33 g/dl (33.0-37.0); MEAN PLATELET VOLUME 9.4 fl (7.4-10.4); MONO # 0.6 K/mm3 (0.1-0.6); MONO % 14.5 % (1.7-9.3); PLATELET COUNT 305 K/mm3 (130-400); RED BLOOD COUNT 2.62 M/mm3 (4.20-5.60); REDCELL DISTRIBUTION WIDTH-CV 14.6 % (11.5-14.5)
[2021-05-30 17:40] LABS: ALBUMIN 2.6 gm/dL (3.5-5.0); ALKALINE PHOSPHATASE 78 U/L (40-150); ANION GAP 10 mmol/L (7-16); AST,SGOT 10 U/L (5-34); BILIRUBIN,TOTAL 0.4 mg/dL (0.2-1.2); BLOOD UREA NITROGEN 16 mg/dL (8-26); CALCIUM 8.2 mg/dL (8.4-10.2); CARBON DIOXIDE 20 mmol/L (22-29); CHLORIDE 110 mmol/L (98-107); CREATININE, serum 1.22 mg/dL (0.72-1.25); GLUCOSE 118 mg/dL (70-99); POTASSIUM 3.5 mmol/L (3.5-4.5); SODIUM 140 mmol/L (136-145); TOTAL PROTEIN 6.5 gm/dL (6.2-8.1)
[2021-05-30 17:45] LABS: ALANINE AMINOTRANSFERASE < 6 U/L (0-55)
--- NOTE | 2021-05-30 19:26 | NUR ---
Patient going downstairs for surgery at this time.
[2021-05-30 22:45] VITALS: BP 95/53; PULSE 78; TEMP 98.5
[2021-05-30 23:00] VITALS: BP 72/55; PULSE 107; TEMP 98.5
[2021-05-30 23:15] VITALS: BP 78/53; PULSE 110; TEMP 98.5
[2021-05-30 23:30] VITALS: BP 96/68; PULSE 110; TEMP 98.5
--- NOTE | 2021-05-30 23:57 | NUR ---
Patient arrived to surgical floor from surgery at approximately 2245. Alert and oriented. Complained of left hip pain, and given PRN Roxicodone. Wound vac to left hip, as well as Hemovac. Bloody drainage. Patient has IV fluids running, IV ABX started per orders to IV to left hand. On oxygen at 2.5 L/min via NC. Did complain of nausea. Called Sue and order received for PRN Zofran. Given. Sister at bedside. Both are cooperative with cares. Encouraged to call for any questions, needs, or concerns, and voiced understanding. Patient has not urinated at this time, but had been straight cathed in PACU. Patient shivering. No fever. Patient reports he usually has chills after surgery due to anesthesia. Given warm blankets. In bed with call light within reach.
[2021-05-31] VITALS (522 sets, daily range): BP systolic 64–157; BP diastolic 32–93; PULSE 61–111; TEMP 90–102.9; O2SAT 65–100
[2021-05-31 00:08] LABS: HEMATOCRIT 22.8 % (42.0-52.0); HEMOGLOBIN 7.4 g/dl (13.5-18.0)
--- NOTE | 2021-05-31 01:23 | NUR ---
Patient reports decreased chills/shaking. Fever 102.3 at this time. Also requested PRN pain medication. BP remains low. Called Sue. Updated on fever. Also updated that he received PRN Roxicodone around 2300, and it is too soon to give. Has order for Dilaudid, but BP remains low. Sue stated that due to BP, no orders for pain medication at this time. Given PRN APAP for fever. Updated patient. Given OJ as requested. Voices no further questions, needs, or concerns at this time. In bed with call light within reach. IV fluids continue, as well as ABXs. Sister remains at bedside.
--- NOTE | 2021-05-31 03:27 | NUR ---
Patient continues to be febrile. Called placed to Dr. Cornejo. New order for 200 mg Motrin now, one time order.
--- NOTE | 2021-05-31 05:21 | NUR ---
Fever 102.8. Given PRN APAP. BP decreased to 70s/30s. Called Dr. Cornejo. New order to give 1000 ml bolus of NS now. May need ICU transfer if BP continues to be low. Bolus going at this time. Sister and patient updated, and voiced understanding. Given PRN APAP, as well as one time motrin this shift for fever. Given PRN Roxicodone for pain as requested during the night. In bed with call light within reach.
--- NOTE | 2021-05-31 05:40 | NUR ---
Dr. Cornejo called this nurse for update at 0540. Updated that BP was 70/40 at that time, with NS bolus running. Order to send to ICU and starte Levophed. Updated patient and sister. Updated Dyslexia Teacher, and given room. Called report to ICU nurse at 0550. Patient taken down to ICU at approximately 0615.
[2021-05-31 06:21] LABS: BASO % 0.5 % (0.0-2.0); EOS % 0.2 % (0-4.0); GRAN # 3.5 K/mm3 (1.4-6.5); LYMPH # 0.3 K/mm3 (1.2-3.4); LYMPH % 7.5 % (20.0-51.0); MEAN CELL VOLUME 87 fl (80.0-100.0); MEAN CORPUSCULAR HGB CONC 33 g/dl (33.0-37.0); MEAN PLATELET VOLUME 9.8 fl (7.4-10.4); MONO # 0.5 K/mm3 (0.1-0.6); MONO % 12.1 % (1.7-9.3); PLATELET COUNT 301 K/mm3 (130-400); RED BLOOD COUNT 2.05 M/mm3 (4.20-5.60); REDCELL DISTRIBUTION WIDTH-CV 14.6 % (11.5-14.5)
[2021-05-31 06:35] LABS: C-REACTIVE PROTEIN 27.07 mg/dL (0.00-0.50); CALCIUM 7.9 mg/dL (8.4-10.2); CREATININE, serum 1.84 mg/dL (0.72-1.25); POTASSIUM 3.9 mmol/L (3.5-4.5)
--- NOTE | 2021-05-31 06:37 | NUR ---
Patient arrived to unit via stretcher at 0605 accompanied by MARIS Ziegler and Kailash RN. All VSS upon arrival except BP reading of 64/47. Patient on 4L via NC. No concerns or complaints noted from patient upon arrival. Levophed gtt started at 0619 and running at 33.3mls/hr. Assessment completed at this time. Patient incision site CDI with no redness or warmth noted around site. Patient has wound vac and hemovac drains at this time. Will resume care of patient at this time.
[2021-05-31 06:38] LABS: HEMATOCRIT 17.8 % (42.0-52.0); HEMOGLOBIN 5.8 g/dl (13.5-18.0); MEAN CORPUSCULAR HEMOGLOBIN 28 pg (27.0-31.0)
--- NOTE | 2021-05-31 06:40 | NUR ---
Patient has purple [employer] jacket, with shoes and a duffle bag of personal hygiene products and clothing at bedside in closet. Patient has cellphone and cremator at bedside. Wallet inside duffel bag with several credit cards inside at a total of $238 in trimble. Patient refuses belongings to be sent to security.
[2021-05-31 07:22] LABS: ERYTHROCYTE SEDIMENTATION RATE > 140 mm/hr (0-30)
--- NOTE | 2021-05-31 10:47 | NUR ---
Dr. Zeng and Dr. Valentin at bedside to see patient. Unit of blood available and verified with 2 nurses. Initiated transfusion at this time. Will remain at bedside for first 15 min to monitor for any reactions.
--- NOTE | 2021-05-31 10:50 | NUR ---
stove bottom worker met with patient at bedside. Patient states that he lives at home with his life partner Greer ([phone]). 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 Patient reports that he does not utilize any DME to assist with mobility but does have access to a cane from a fall a few years back. No O2 needs. PCP is Dr. Villalpando and he utilizes [facility] for a pharmacy. Patient reports that he does not have a DPOA-HC established. He and Greer are not legally and he has no children. He states that his father Pasquale Reynolds ([phone]) is his living NOK. Educated the patient that if he would like Greer included then he would need to complete a DPOA-HC. Patient verbalized his understanding of this and verbalizes he would like to complete a DPOA-HC form. Form provided to the patient.
--- NOTE | 2021-05-31 11:09 | NUR ---
oyster bed worker and family preservation caseworker Katherine Cuellar witnessed patient's signature on DPOA-HC form. Copy made for the patient chart. Original and additional copies given to the patient.
--- NOTE | 2021-05-31 11:15 | NUR ---
turn out worker met with patient at bedside. Patient's sister Lisa ([phone]) present at bedside as well. Patient reports that he is independent with his ADL's. Still using a walking stick, wheelchair and wound vac. Wound vac assigned to him via [facility] during visit in March. Patient reports that his IV antibiotics from [place] were finished up about a week ago and that [place] [facility] "cancelled him". Patient is still seeing as a PCP and utilizing [facility] for perscriptions. DPOA- on file lists his sister Lisa as his agent.
--- NOTE | 2021-05-31 12:15 | NUR ---
Despite multiple attempts to use the urinal, patient unable to void. BLadder scan showed [address] Choi notifie; received order to place adams. 1400 ml were immediately received upon insertion.
--- NOTE | 2021-05-31 13:19 | NUR ---
Dr. Valentin and kemal at bedside performing LIZ with an echo. Tolerating well.
[2021-05-31 14:26] LABS: HEMATOCRIT 20.7 % (42.0-52.0); HEMOGLOBIN 6.7 g/dl (13.5-18.0)
[2021-05-31 14:32] LABS: CALCIUM 7.9 mg/dL (8.4-10.2); CREATININE, serum 1.37 mg/dL (0.72-1.25); INR 1.5 (0.8-3.0); POTASSIUM 4.4 mmol/L (3.5-4.5); PROTHROMBIN TIME 16.9 SECONDS (9.7-12.8)
--- NOTE | 2021-05-31 17:22 | NUR ---
Assisted up to use the commode; tolerated well. Call light left within reach; will call when finished.
[2021-05-31 18:49] LABS: HEMOGLOBIN 7.5 g/dl (13.5-18.0)
[2021-06-01] VITALS (361 sets, daily range): BP systolic 84–144; BP diastolic 39–88; PULSE 70–91; TEMP 98.3–101; O2SAT 70–100
[2021-06-01 04:21] LABS: BASO % 0.2 % (0.0-2.0); EOS # 0.3 K/mm3 (0.0-0.7); GRAN # 2.9 K/mm3 (1.4-6.5); GRAN % 66.7 % (42.2-75.2); LYMPH # 0.8 K/mm3 (1.2-3.4); LYMPH % 17.2 % (20.0-51.0); MEAN CELL VOLUME 84 fl (80.0-100.0); MEAN CORPUSCULAR HGB CONC 34 g/dl (33.0-37.0); MEAN PLATELET VOLUME 9.7 fl (7.4-10.4); MONO # 0.4 K/mm3 (0.1-0.6); MONO % 9.4 % (1.7-9.3); PLATELET COUNT 260 K/mm3 (130-400); RED BLOOD COUNT 2.43 M/mm3 (4.20-5.60); REDCELL DISTRIBUTION WIDTH-CV 14.7 % (11.5-14.5)
[2021-06-01 04:35] LABS: CALCIUM 8.2 mg/dL (8.4-10.2); CREATININE, serum 1.05 mg/dL (0.72-1.25); POTASSIUM 4.5 mmol/L (3.5-4.5)
[2021-06-01 04:47] LABS: HEMATOCRIT 20.5 % (42.0-52.0); HEMOGLOBIN 6.9 g/dl (13.5-18.0); MEAN CORPUSCULAR HEMOGLOBIN 28 pg (27.0-31.0)
[2021-06-01 05:06] LABS: C-REACTIVE PROTEIN 32.11 mg/dL (0.00-0.50)
[2021-06-01 05:11] LABS: ERYTHROCYTE SEDIMENTATION RATE 127 mm/hr (0-30)
--- NOTE | 2021-06-01 12:02 | NUR ---
REPORT CALLED TO MARIS DELEON
--- NOTE | 2021-06-01 13:30 | NUR ---
Patient taken to room 328. He tolerated this well. Care handed over to MARIS Walters
--- NOTE | 2021-06-01 15:52 | NUR ---
Patient recieved from ICU this afternoon. He has had minimal needs. His sister at bedside. He did well with lunch, good appetite. Assessment completed. He has been visiting on the phone alot this afternoon, not wanting to be bothered. Vega to DD, adequate output. Picc to RUE. Left hip with wound vac (125 mmhg) & hemovac. Scds. I called the blood bank & they have not heard when unit of blood is to arrive. Will monitor.
--- NOTE | 2021-06-01 18:23 | NUR ---
Patient resting in bed. Dinner ordered. His sister at bedside. He contineus to be on the telephoen frequently. Hemovac to compression, wound vac per orders. Scds Ble. Abductor pillow in place. Navarrete to DD. Picc to RUE. IVF per orders. Still waiting on the blood.
--- NOTE | 2021-06-01 20:38 | NUR ---
VS DONE PRIOR TO BLOOD TRANSFUSION, TEMP 100.5, OFFERED TYLENOL, PT REFUSED. NOTIFIED YOUSUF ROMAN OF TEMP. WANTS TO PROCEED WITH TRANSFUSION.
--- NOTE | 2021-06-01 21:15 | NUR ---
15 MIN BLOOD VS OBTAINED, TEMP DOWN TO 100.2
--- NOTE | 2021-06-01 22:00 | NUR ---
1 HOUR BLOOD VS OBTAINED TEMP UP TO 101.0, PT DENIES ANY TRANSFUSION REACTION SYMPTOMS, NOTIFIED YOUSUF BURCH, TYLENOL GIVEN, PROCEEDED WITH TRANSFUSION.
--- NOTE | 2021-06-01 23:00 | NUR ---
temp down to 99.8 after tylenol given, blood continues infusing without s/sx of reaction.
--- NOTE | 2021-06-01 23:45 | NUR ---
Pt wanting his adams dc'd, discussed with YOUSUF Rapp, ok to remove. Removed 6cc sterile water from balloon, catheter removed without difficulty.
[2021-06-02] VITALS: BP 101/55; PULSE 78; TEMP 99
[2021-06-02 04:22] VITALS: BP 95/52; PULSE 60; TEMP 97.6
--- NOTE | 2021-06-02 06:38 | NUR ---
pt receiving dilaudid for pain control, given x3 this shift, rec'd 1 unit of blood tonight. temp up to 101.0 this shift, down to 99 after tylenol. wound vac and hemovac in place, IVF infusing per PICC, good po intake this shift. angie dc'd, has attempted to urinate, but unable to so far.
[2021-06-02 06:50] LABS: BASO % 0.2 % (0.0-2.0); EOS # 0.4 K/mm3 (0.0-0.7); EOS % 9.2 % (0-4.0); GRAN # 2.7 K/mm3 (1.4-6.5); GRAN % 60.6 % (42.2-75.2); LYMPH # 0.9 K/mm3 (1.2-3.4); LYMPH % 21.2 % (20.0-51.0); MEAN CELL VOLUME 86 fl (80.0-100.0); MEAN CORPUSCULAR HGB CONC 33 g/dl (33.0-37.0); MEAN PLATELET VOLUME 9.9 fl (7.4-10.4); MONO # 0.4 K/mm3 (0.1-0.6); MONO % 8.3 % (1.7-9.3); PLATELET COUNT 278 K/mm3 (130-400); REDCELL DISTRIBUTION WIDTH-CV 15.2 % (11.5-14.5)
[2021-06-02 06:56] LABS: HEMATOCRIT 22.3 % (42.0-52.0); HEMOGLOBIN 7.4 g/dl (13.5-18.0); MEAN CORPUSCULAR HEMOGLOBIN 28 pg (27.0-31.0)
--- NOTE | 2021-06-02 07:00 | NUR ---
REPORT RECIEVED FROM MARIS KIRK. PT RESTING IN BED, TALKING ON PHONE. NO COMPLAINTS OF PAIN OR NAUSEA. NO SIGNS OF DISTRESS. CALL LIGHT WITHIN REACH
[2021-06-02 07:34] LABS: ERYTHROCYTE SEDIMENTATION RATE > 140 mm/hr (0-30)
[2021-06-02 11:41] VITALS: BP 110/62; PULSE 75; TEMP 97.6
[2021-06-02 16:00] VITALS: BP 119/65; PULSE 65; TEMP 98.4
--- NOTE | 2021-06-02 18:25 | NUR ---
PT RESTING IN BED. NO COMPLAINTS OF PAIN OR NAUSEA. NO SIGNS OF DISTRESS. CALL LIGHT WITHIN REACH. FAMILY MEMBER AT BEDSIDE.
[2021-06-02 19:24] VITALS: BP 109/58; PULSE 73; TEMP 98.4
--- NOTE | 2021-06-02 22:19 | NUR ---
ALERT OX4. VISITOR AT BEDSIDE DURING SHIFT CHANGE. WOUND VAC TO LEFT HIP INTACT W GOOD SUCTION. OLIVARES CATH TO DD. PT DENIES PAIN,SOA OR DIZZY. IV FLUIDS/ANTIBOTICS INFUSING. WHEN GIVING PT EVENING MEDS WAS VERY GROGGY AND TIRED, NOT STAYING AWAKE. CALL LIGHT WI REACH. NEEDS MET. CONTACT PRECAUTIONS.
[2021-06-03] VITALS (12 sets, daily range): BP systolic 99–126; BP diastolic 55–66; PULSE 66–82; TEMP 97.7–99.1
[2021-06-03 06:12] LABS: BASO % 0.3 % (0.0-2.0); EOS # 0.3 K/mm3 (0.0-0.7); EOS % 8.8 % (0-4.0); GRAN # 2.6 K/mm3 (1.4-6.5); LYMPH # 0.6 K/mm3 (1.2-3.4); LYMPH % 14.8 % (20.0-51.0); MEAN CELL VOLUME 88 fl (80.0-100.0); MEAN CORPUSCULAR HGB CONC 32 g/dl (33.0-37.0); MEAN PLATELET VOLUME 9.7 fl (7.4-10.4); MONO # 0.3 K/mm3 (0.1-0.6); MONO % 7.8 % (1.7-9.3); PLATELET COUNT 296 K/mm3 (130-400); RED BLOOD COUNT 2.42 M/mm3 (4.20-5.60); REDCELL DISTRIBUTION WIDTH-CV 15.5 % (11.5-14.5)
[2021-06-03 06:14] LABS: HEMATOCRIT 21.2 % (42.0-52.0); HEMOGLOBIN 6.8 g/dl (13.5-18.0); MEAN CORPUSCULAR HEMOGLOBIN 28 pg (27.0-31.0)
[2021-06-03 06:28] LABS: CALCIUM 8.6 mg/dL (8.4-10.2); MAGNESIUM 1.8 mg/dL (1.6-2.6); POTASSIUM 4.4 mmol/L (3.5-4.5)
--- NOTE | 2021-06-03 07:10 | NUR ---
Critical H&H 6.8, Called To . orders obtained. Also let Navneet Hinton know of H&H dez.
--- NOTE | 2021-06-03 09:17 | NUR ---
Patient resting in bed. Orthopedics rounded this am. Patient sleepy this am. Arouses to name. Unit of blood started per orders. Policy followed. Picc to RUE. Started at 60Ml/hr. We reviewed signs & symptoms of reactions, patients has had multiple blood transfusions & denies questions or concerns. Patient tolerated first 15 minutes without any signs of reaction. Vitals stable on his 2 L O2. Left hip wound vac dressing intact, to 125 mmhg suction. Hemovac to compression. Scds & teds refused at this time. Patient not yet interested in having breakfast. No signs of nausea. Vega to DD with clear yellow urine. his sister Lisa & DPOA called to check in on him, plan of care was reviewed with her. Will monitor closely.
--- NOTE | 2021-06-03 10:57 | NUR ---
Patient resting in bed. Sister at bedside. He continue to rest soundly. He did work with therapy this am and was out of bed. Patient continue to tolerate blood transfusion.
--- NOTE | 2021-06-03 14:24 | NUR ---
ZENY staffed with the pharmacist. The patient is going to need IV Dapto once a day and IV Cefepime twice a day for six weeks. This SW assisted the patient with getting home IV antibiotics though [facility] during his hospital stay in March. The patient was also set up with [facility]. ZENY contacted Nandini at [facility] to follow up on services. Nandini reports that they discontinued services with the patient and will not take him back, due to the patient pulling out his own line and him putting her RNs in jeapordy. The patient was also not homebound. ZENY staffed with [facility], with advanced IV services. The patient is able to come to the [facility] for PICC line changes. ZENY met with the patient and his sister, Marivel, to review discharge plan and to address the above. The patient is agreeable to getting the IV antibiotics from [facility] and he would prefer to come to the [facility] to receive the PICC Line Care. He requests that his dressing is changed before he discharges. ZENY notified [facility]. She is agreeable to doing this and reports that the patient will need to come to the [facility] Unit once a week for the dressing changes and he will need to start coming next Thursday. ZENY notified the patient and his sister Marivel. They both verbalized understanding and are agreeable to this. ZENY contacted and faxed the patient's records to Lucina at [facility]. Awaiting approval and confirmation of when the patient's meds will be delivered. *Discharge plan: home with family support*
--- NOTE | 2021-06-03 14:59 | NUR ---
Patient resting in bed. His sister remains at bedside. He tolerated his lunch. Wound vac remains to 125MMHG. Hemovac to compression. Denies needs at this time. Will monitor.
[2021-06-03] MEDS ORDERED: FLOMAX 0.40.4 MG/CAP PO (16:05)
[2021-06-03] MEDS ORDERED: CUBICIN 500MG500 MG IV (16:05)
[2021-06-03] MEDS ORDERED: MAXIPIME2 GM IV (16:05)
--- NOTE | 2021-06-03 19:12 | NUR ---
Patient resting in bed. Urinal provided, so patient can attempted to void. He is working on his dinner tray, more awake and alert. report to jayashreenurse
[2021-06-04 04:34] VITALS: BP 111/59; PULSE 83; TEMP 98.5
--- NOTE | 2021-06-04 06:30 | NUR ---
pt had 1 episode of urinary incontinence while asleep, now using urinal to void, has voided 200 cc so far. no c/o pain this shift. remains on 2L of O2. wound vac and hemovac intact and secure.
[2021-06-04 07:09] LABS: BASO % 0.5 % (0.0-2.0); EOS # 0.4 K/mm3 (0.0-0.7); EOS % 8.2 % (0-4.0); GRAN # 3.1 K/mm3 (1.4-6.5); GRAN % 69.7 % (42.2-75.2); LYMPH # 0.6 K/mm3 (1.2-3.4); LYMPH % 13.5 % (20.0-51.0); MEAN CELL VOLUME 90 fl (80.0-100.0); MEAN CORPUSCULAR HGB CONC 32 g/dl (33.0-37.0); MEAN PLATELET VOLUME 9.7 fl (7.4-10.4); MONO # 0.3 K/mm3 (0.1-0.6); MONO % 7.6 % (1.7-9.3); PLATELET COUNT 379 K/mm3 (130-400); RED BLOOD COUNT 2.77 M/mm3 (4.20-5.60); REDCELL DISTRIBUTION WIDTH-CV 16.2 % (11.5-14.5)
[2021-06-04 07:12] LABS: HEMATOCRIT 24.8 % (42.0-52.0); HEMOGLOBIN 7.8 g/dl (13.5-18.0); MEAN CORPUSCULAR HEMOGLOBIN 28 pg (27.0-31.0)
[2021-06-04 07:35] LABS: C-REACTIVE PROTEIN 16.3 mg/dL (0.00-0.50); CALCIUM 8.7 mg/dL (8.4-10.2); CREATININE, serum 1.01 mg/dL (0.72-1.25)
[2021-06-04 08:00] VITALS: BP 131/59; PULSE 85; TEMP 97.8
--- NOTE | 2021-06-04 13:53 | NUR ---
ZENY contacted Lucina, at [facility], to follow up on delivery for the antibiotics. Lucina reports that the patient's antibiotics will be delivered to his home today and that he will be able to receive his evening dose of Cefepime at home tonight. ZENY updated the patient and the clinical team. The patient is to come back to the [facility] next Thursday for PICC line care. The patient preferred to come in at 1100. The patient was scheduled an appointment with Ortho next Thursday and they are unable to get him in at any other time. ZENY notified Rosamaria in the Express Unit. Rosamaria reports that the patient can come in after his appointment with Ortho. ZENY faxed the patient's orders to Rosamaria in the [facility]. ZENY met with the patient to update. The patient verbalized understanding and was agreeable to the plan. The patient is to discharge back home today, 06/04, with home IV antibiotics from [facility] and PICC line care in the [facility] Unit. No additional needs at this time.
--- NOTE | 2021-06-04 14:00 | NUR ---
Pt discharged with all belongings. Portable WoundVac functioning normally
== END 2021-06-04 14:00 | disposition home or self-care (01) | DRG 466 ==
LOC: SURG 10:45 → ICU 11:10 → SURG 11:10 → ICU 05-31 06:05 → SURG 06-01 13:21
PROVIDERS: Internal Medicine; Internal Medicine Cardiovascular Disease; Internal Medicine Pulmonary Disease; Physician Assistant; ADMIT Orthopaedic Surgery Sports Medicine
PROC: 0SUB09Z Supplement Left Hip Joint with Liner, Open Approach (ICD-10-PCS; 2021-05-30)
PROC: 02HV33Z Insertion of Infusion Device into Superior Vena Cava, Percutaneous Approach (ICD-10-PCS; 2021-05-30)
PROC: 0SRS0JZ Replacement of Left Hip Joint, Femoral Surface with Synthetic Substitute, Open Approach (ICD-10-PCS; principal; 2021-05-30 17:30)
PROC: 0SPS0JZ Removal of Synthetic Substitute from Left Hip Joint, Femoral Surface, Open Approach (ICD-10-PCS; 2021-05-30 17:30)
PROC: 0SPB09Z Removal of Liner from Left Hip Joint, Open Approach (ICD-10-PCS; 2021-05-30 17:30)
PROC: 30233N1 Transfusion of Nonautologous Red Blood Cells into Peripheral Vein, Percutaneous Approach (ICD-10-PCS; 2021-06-03)
DX: T84.52XA Infection and inflammatory reaction due to internal left hip prosthesis, initial encounter (principal); A41.9 Sepsis, unspecified organism; R65.21 Severe sepsis with septic shock; M00.9 Pyogenic arthritis, unspecified; C34.90 Malignant neoplasm of unspecified part of unspecified bronchus or lung; J96.11 Chronic respiratory failure with hypoxia; N17.9 Acute kidney failure, unspecified; D62 Acute posthemorrhagic anemia; N18.9 Chronic kidney disease, unspecified; R33.9 Retention of urine, unspecified; G72.9 Myopathy, unspecified; I34.0 Nonrheumatic mitral (valve) insufficiency; B95.2 Enterococcus as the cause of diseases classified elsewhere; B95.8 Unspecified staphylococcus as the cause of diseases classified elsewhere; Z96.643 Presence of artificial hip joint, bilateral; Z95.2 Presence of prosthetic heart valve; Z87.891 Personal history of nicotine dependence
CPT/HCPCS: 99222; 99232-AI; 99233-AI; A6550; C1713; C1751; C1776; J0692; J1170; J2250; J2405; J2543; J2704; J3010; J3370; J7030; J7050; J7060; J7120; P9040

== ENCOUNTER 2021-07-16 11:00 | Outpatient (RCR) | payer BC ==
--- NOTE | 2021-06-11 11:25 | NUR ---
Pt reporte he did not bring IV extention to apt.Education provided and extra PICC cap provided for pt to place at end of extension.Pt reports he does his infusions at home.Instructed pt to bring new IV tubing extention to next apt.
[2021-06-11 11:29] VITALS: BP 115/64; PULSE 81; TEMP 98
[2021-06-11 11:36] LABS: MEAN CELL VOLUME 84 fl (80.0-100.0); MEAN CORPUSCULAR HGB CONC 33 g/dl (33.0-37.0); MEAN PLATELET VOLUME 9.5 fl (7.4-10.4); PLATELET COUNT 494 K/mm3 (130-400); RED BLOOD COUNT 3.21 M/mm3 (4.20-5.60); REDCELL DISTRIBUTION WIDTH-CV 15.2 % (11.5-14.5)
[2021-06-11 11:38] LABS: HEMATOCRIT 27.1 % (42.0-52.0); HEMOGLOBIN 8.8 g/dl (13.5-18.0); MEAN CORPUSCULAR HEMOGLOBIN 27 pg (27.0-31.0)
[2021-06-11 11:41] LABS: ALBUMIN 2.9 gm/dL (3.5-5.0); BILIRUBIN,TOTAL 0.2 mg/dL (0.2-1.2); C-REACTIVE PROTEIN 6.07 mg/dL (0.00-0.50); CALCIUM 8.9 mg/dL (8.4-10.2); CREATININE, serum 0.93 mg/dL (0.72-1.25); POTASSIUM 3.7 mmol/L (3.5-4.5); TOTAL PROTEIN 7.1 gm/dL (6.2-8.1)
[2021-06-11 11:54] LABS: ERYTHROCYTE SEDIMENTATION RATE 112 mm/hr (0-30)
[2021-06-18 11:42] LABS: MEAN CELL VOLUME 88 fl (80.0-100.0); MEAN CORPUSCULAR HGB CONC 32 g/dl (33.0-37.0); MEAN PLATELET VOLUME 9.6 fl (7.4-10.4); PLATELET COUNT 345 K/mm3 (130-400); RED BLOOD COUNT 3.36 M/mm3 (4.20-5.60); REDCELL DISTRIBUTION WIDTH-CV 15.4 % (11.5-14.5)
[2021-06-18 11:44] LABS: HEMATOCRIT 29.5 % (42.0-52.0); HEMOGLOBIN 9.3 g/dl (13.5-18.0); MEAN CORPUSCULAR HEMOGLOBIN 28 pg (27.0-31.0)
[2021-06-18 11:45] VITALS: BP 121/68; PULSE 79; TEMP 98.6
[2021-06-18 12:06] LABS: ERYTHROCYTE SEDIMENTATION RATE 95 mm/hr (0-30)
[2021-06-18 12:21] LABS: ALBUMIN 3.2 gm/dL (3.5-5.0); ALKALINE PHOSPHATASE 94 U/L (40-150); ANION GAP 8 mmol/L (7-16); AST,SGOT 14 U/L (5-34); BILIRUBIN,TOTAL 0.3 mg/dL (0.2-1.2); BLOOD UREA NITROGEN 21 mg/dL (8-26); CALCIUM 8.8 mg/dL (8.4-10.2); CARBON DIOXIDE 22 mmol/L (22-29); CHLORIDE 113 mmol/L (98-107); CREATINE KINASE 125 U/L (30-200); CREATININE, serum 0.91 mg/dL (0.72-1.25); GLUCOSE 95 mg/dL (70-99); POTASSIUM 4.1 mmol/L (3.5-4.5); SODIUM 143 mmol/L (136-145); TOTAL PROTEIN 7.7 gm/dL (6.2-8.1)
[2021-06-18 12:23] LABS: ALANINE AMINOTRANSFERASE < 6 U/L (0-55)
--- NOTE | 2021-06-25 11:10 | NUR ---
Here for PICC cares. top of PICC dressing not intact. sterile dressing change done with an extra tegaderm applied on top of dressing. to return next week for cares. voiced understanding of instructions.
[2021-06-25 11:29] LABS: BASO % 0.7 % (0.0-2.0); EOS # 0.5 K/mm3 (0.0-0.7); EOS % 11.2 % (0-4.0); GRAN # 2.4 K/mm3 (1.4-6.5); GRAN % 54.7 % (42.2-75.2); LYMPH % 22.4 % (20.0-51.0); MEAN CELL VOLUME 86 fl (80.0-100.0); MEAN CORPUSCULAR HGB CONC 32 g/dl (33.0-37.0); MEAN PLATELET VOLUME 9.8 fl (7.4-10.4); MONO # 0.5 K/mm3 (0.1-0.6); MONO % 10.5 % (1.7-9.3); PLATELET COUNT 312 K/mm3 (130-400); RED BLOOD COUNT 3.37 M/mm3 (4.20-5.60); REDCELL DISTRIBUTION WIDTH-CV 14.8 % (11.5-14.5)
[2021-06-25 11:30] LABS: HEMOGLOBIN 9.2 g/dl (13.5-18.0); MEAN CORPUSCULAR HEMOGLOBIN 27 pg (27.0-31.0)
[2021-06-25 11:36] VITALS: BP 108/62; PULSE 76; TEMP 98.1
[2021-06-25 11:44] LABS: ALBUMIN 3.3 gm/dL (3.5-5.0); BILIRUBIN,TOTAL 0.2 mg/dL (0.2-1.2); C-REACTIVE PROTEIN 5.8 mg/dL (0.00-0.50); CALCIUM 8.8 mg/dL (8.4-10.2); CREATININE, serum 0.92 mg/dL (0.72-1.25); POTASSIUM 3.8 mmol/L (3.5-4.5); TOTAL PROTEIN 7.7 gm/dL (6.2-8.1)
[2021-06-25 12:16] LABS: ERYTHROCYTE SEDIMENTATION RATE 90 mm/hr (0-30)
[2021-07-02 11:30] VITALS: BP 96/61; PULSE 79; TEMP 98.2
[2021-07-02 11:40] LABS: BASO % 0.7 % (0.0-2.0); EOS # 0.5 K/mm3 (0.0-0.7); EOS % 11.4 % (0-4.0); GRAN # 2.4 K/mm3 (1.4-6.5); MEAN CELL VOLUME 87 fl (80.0-100.0); MEAN CORPUSCULAR HGB CONC 32 g/dl (33.0-37.0); MEAN PLATELET VOLUME 9.5 fl (7.4-10.4); MONO # 0.4 K/mm3 (0.1-0.6); MONO % 9.8 % (1.7-9.3); PLATELET COUNT 329 K/mm3 (130-400); RED BLOOD COUNT 3.32 M/mm3 (4.20-5.60); REDCELL DISTRIBUTION WIDTH-CV 15.3 % (11.5-14.5)
[2021-07-02 11:42] LABS: HEMATOCRIT 28.8 % (42.0-52.0); HEMOGLOBIN 9.1 g/dl (13.5-18.0); MEAN CORPUSCULAR HEMOGLOBIN 27 pg (27.0-31.0)
[2021-07-02 11:58] LABS: ALBUMIN 3.2 gm/dL (3.5-5.0); BILIRUBIN,TOTAL 0.2 mg/dL (0.2-1.2); C-REACTIVE PROTEIN 3.32 mg/dL (0.00-0.50); CALCIUM 8.6 mg/dL (8.4-10.2); CREATININE, serum 0.84 mg/dL (0.72-1.25)
[2021-07-02 12:13] LABS: POTASSIUM 3.6 mmol/L (3.5-4.5)
[2021-07-02 12:18] LABS: ERYTHROCYTE SEDIMENTATION RATE 75 mm/hr (0-30)
[2021-07-10 09:28] LABS: MEAN CELL VOLUME 87 fl (80.0-100.0); MEAN CORPUSCULAR HGB CONC 32 g/dl (33.0-37.0); MEAN PLATELET VOLUME 9.6 fl (7.4-10.4); PLATELET COUNT 306 K/mm3 (130-400); RED BLOOD COUNT 3.43 M/mm3 (4.20-5.60); REDCELL DISTRIBUTION WIDTH-CV 15.9 % (11.5-14.5)
[2021-07-10 09:29] VITALS: BP 106/69; PULSE 84; TEMP 97.6
[2021-07-10 09:34] LABS: HEMATOCRIT 29.9 % (42.0-52.0); HEMOGLOBIN 9.6 g/dl (13.5-18.0); MEAN CORPUSCULAR HEMOGLOBIN 28 pg (27-31)
[2021-07-10 09:45] LABS: ALBUMIN 3.4 gm/dL (3.5-5.0); BILIRUBIN,TOTAL 0.3 mg/dL (0.2-1.2); C-REACTIVE PROTEIN 3.68 mg/dL (0.00-0.50); CALCIUM 8.8 mg/dL (8.4-10.2); CREATININE, serum 0.88 mg/dL (0.72-1.25); TOTAL PROTEIN 7.3 gm/dL (6.2-8.1)
[2021-07-10 10:03] LABS: ERYTHROCYTE SEDIMENTATION RATE 61 mm/hr (0-30)
[~2021-07-16] VITALS: Ht 170.2 cm; Wt 88.2 kg
[2021-07-16 09:36] VITALS: BP 120/76; PULSE 82; TEMP 98.2
[2021-07-16 09:51] LABS: MEAN CELL VOLUME 87 fl (80.0-100.0); MEAN CORPUSCULAR HGB CONC 33 g/dl (33.0-37.0); MEAN PLATELET VOLUME 9.5 fl (7.4-10.4); PLATELET COUNT 245 K/mm3 (130-400); RED BLOOD COUNT 3.29 M/mm3 (4.20-5.60); REDCELL DISTRIBUTION WIDTH-CV 15.7 % (11.5-14.5)
[2021-07-16 09:53] LABS: HEMATOCRIT 28.6 % (42.0-52.0); HEMOGLOBIN 9.3 g/dl (13.5-18.0); MEAN CORPUSCULAR HEMOGLOBIN 28 pg (27-31)
[2021-07-16 10:12] LABS: ALBUMIN 3.3 gm/dL (3.5-5.0); BILIRUBIN,TOTAL 0.2 mg/dL (0.2-1.2); C-REACTIVE PROTEIN 2.68 mg/dL (0.00-0.50); CALCIUM 8.8 mg/dL (8.4-10.2); CREATININE, serum 0.82 mg/dL (0.72-1.25); POTASSIUM 3.4 mmol/L (3.5-4.5)
[2021-07-16 10:36] LABS: ERYTHROCYTE SEDIMENTATION RATE 44 mm/hr (0-30)
[~2021-07-16 11:00] MED LIST changes: +MAXIPIME2 GM IV
== END 2021-07-17 15:21 | disposition home or self-care (01) ==
LOC: EUO 11:00
PROVIDERS: Family Medicine; Orthopaedic Surgery Sports Medicine
DX: Z45.2 Encounter for adjustment and management of vascular access device (principal)

== ENCOUNTER 2021-09-11 11:08 | Outpatient (RCR) | payer BC ==
--- NOTE | 2021-09-04 12:09 | NUR ---
Visited with patient via phone. He is still a patient at [facility]. Hip socket has been removed and a spacer has been inserted. PICC cares were done today and his plan is for care in [facility] next Thursday.
[~2021-09-11] VITALS: Ht 170.2 cm; Wt 88.5 kg
[2021-09-11] MEDS ORDERED: PROSCAR 5MG5 MG PO (11:58)
[2021-09-11] MEDS ORDERED: FLOMAX 0.40.4 MG/CAP PO (11:58)
[2021-09-11 11:59] VITALS: BP 104/60; PULSE 78; TEMP 98.2
--- NOTE | 2021-09-11 12:20 | NUR ---
Here for PICC cares. Patient is PICC was placed at [facility]. He will be self administrating IV antibiotics at home for at least 6 weeks. Patient's right upper arm PICC is intact. Sterile dressing change performed. Patient to return next Thursday at 9:00 in the morning for cares. Patient voiced understanding of instructions.
[2021-09-11 12:39] LABS: ALBUMIN 2.8 gm/dL (3.5-5.0); BILIRUBIN,TOTAL 0.2 mg/dL (0.2-1.2); CALCIUM 8.6 mg/dL (8.4-10.2); CREATININE, serum 0.84 mg/dL (0.72-1.25); POTASSIUM 3.8 mmol/L (3.5-4.5); TOTAL PROTEIN 6.9 gm/dL (6.2-8.1)
[2021-09-11 12:44] LABS: BASO % 0.4 % (0.0-2.0); EOS # 0.3 K/mm3 (0.0-0.7); EOS % 7.2 % (0.0-4.0); GRAN # 3.3 K/mm3 (1.4-6.5); GRAN % 68.8 % (42.2-75.2); HEMOGLOBIN 9.4 g/dl (13.5-18.0); LYMPH # 0.5 K/mm3 (1.2-3.4); LYMPH % 11.2 % (20.0-51.0); MEAN CELL VOLUME 88 fl (80.0-100.0); MEAN CORPUSCULAR HEMOGLOBIN 29 pg (27-31); MEAN CORPUSCULAR HGB CONC 32 g/dl (33.0-37.0); MEAN PLATELET VOLUME 9.7 fl (7.4-10.4); MONO # 0.6 K/mm3 (0.1-0.6); MONO % 11.8 % (1.7-9.3); PLATELET COUNT 374 K/mm3 (130-400); RED BLOOD COUNT 3.29 M/mm3 (4.20-5.60); REDCELL DISTRIBUTION WIDTH-CV 14.3 % (11.5-14.5)
[2021-09-17 11:26] LABS: CK total - for Isoenzymes 71 U/L (39 - 308)
[2021-10-21] MEDS ORDERED: ROXICODONE 55 MG/TAB PO (17:49)
[2021-10-21] MEDS ORDERED: COLACE 100100 MG/CAP PO (17:50)
[2021-10-21] MEDS ORDERED: NATURAL IRON65 MG PO (17:50)
[2021-10-21] MEDS ORDERED: TYLENOL 500MG500 MG PO (17:50)
== END 2021-09-16 | disposition home or self-care (01) ==
LOC: EUO
PROVIDERS: Family Medicine
DX: T84.59XD Infection and inflammatory reaction due to other internal joint prosthesis, subsequent encounter (principal); Z96.649 Presence of unspecified artificial hip joint

== ENCOUNTER 2021-10-09 09:00 | Outpatient (RCR) | payer BC ==
[2021-09-18 09:35] LABS: BASO % 0.4 % (0.0-2.0); EOS # 0.3 K/mm3 (0.0-0.7); EOS % 5.2 % (0.0-4.0); GRAN # 3.6 K/mm3 (1.4-6.5); GRAN % 64.6 % (42.2-75.2); LYMPH # 1.1 K/mm3 (1.2-3.4); MEAN CELL VOLUME 87 fl (80.0-100.0); MEAN CORPUSCULAR HGB CONC 33 g/dl (33.0-37.0); MEAN PLATELET VOLUME 9.4 fl (7.4-10.4); MONO # 0.6 K/mm3 (0.1-0.6); MONO % 10.3 % (1.7-9.3); PLATELET COUNT 484 K/mm3 (130-400); RED BLOOD COUNT 3.42 M/mm3 (4.20-5.60); REDCELL DISTRIBUTION WIDTH-CV 14.2 % (11.5-14.5)
[2021-09-18 09:37] LABS: HEMATOCRIT 29.9 % (42.0-52.0); HEMOGLOBIN 9.8 g/dl (13.5-18.0); MEAN CORPUSCULAR HEMOGLOBIN 29 pg (27-31)
[2021-09-18 09:48] VITALS: BP 108/64; PULSE 102; TEMP 97.8
[2021-09-18 09:48] LABS: ALBUMIN 3.3 gm/dL (3.5-5.0); BILIRUBIN,TOTAL 0.3 mg/dL (0.2-1.2); CALCIUM 9.4 mg/dL (8.4-10.2); CREATININE, serum 1.07 mg/dL (0.72-1.25); POTASSIUM 3.5 mmol/L (3.5-4.5); TOTAL PROTEIN 7.8 gm/dL (6.2-8.1)
[2021-09-25 09:48] VITALS: BP 113/54; PULSE 85; TEMP 98.9
[2021-09-25 09:52] LABS: BASO % 0.4 % (0.0-2.0); EOS # 0.3 K/mm3 (0.0-0.7); EOS % 5.2 % (0.0-4.0); GRAN # 3.5 K/mm3 (1.4-6.5); GRAN % 66.9 % (42.2-75.2); LYMPH # 0.9 K/mm3 (1.2-3.4); LYMPH % 17.2 % (20.0-51.0); MEAN CELL VOLUME 88 fl (80.0-100.0); MEAN CORPUSCULAR HGB CONC 32 g/dl (33.0-37.0); MEAN PLATELET VOLUME 9.3 fl (7.4-10.4); MONO # 0.5 K/mm3 (0.1-0.6); MONO % 9.9 % (1.7-9.3); PLATELET COUNT 451 K/mm3 (130-400); RED BLOOD COUNT 3.29 M/mm3 (4.20-5.60); REDCELL DISTRIBUTION WIDTH-CV 14.3 % (11.5-14.5)
[2021-09-25 09:54] LABS: HEMATOCRIT 28.8 % (42.0-52.0); HEMOGLOBIN 9.3 g/dl (13.5-18.0); MEAN CORPUSCULAR HEMOGLOBIN 28 pg (27-31)
[2021-09-25 10:11] LABS: ALBUMIN 3.2 gm/dL (3.5-5.0); BILIRUBIN,TOTAL 0.2 mg/dL (0.2-1.2); C-REACTIVE PROTEIN 9.12 mg/dL (0.00-0.50); CREATININE, serum 0.85 mg/dL (0.72-1.25); POTASSIUM 3.5 mmol/L (3.5-4.5); TOTAL PROTEIN 7.8 gm/dL (6.2-8.1)
[2021-09-25 10:25] LABS: ERYTHROCYTE SEDIMENTATION RATE 103 mm/hr (0-30)
[2021-09-27 16:46] LABS: CK total - for Isoenzymes 69 U/L (39 - 308)
[2021-10-02 09:22] VITALS: BP 11/69; PULSE 89; TEMP 98.4
[2021-10-02 09:37] LABS: ALBUMIN 3.3 gm/dL (3.5-5.0); BILIRUBIN,TOTAL 0.2 mg/dL (0.2-1.2); CALCIUM 8.6 mg/dL (8.4-10.2); CREATININE, serum 0.86 mg/dL (0.72-1.25); POTASSIUM 3.5 mmol/L (3.5-4.5); TOTAL PROTEIN 8.2 gm/dL (6.2-8.1)
[2021-10-02 09:54] LABS: HEMATOCRIT 29.8 % (42.0-52.0); HEMOGLOBIN 9.6 g/dl (13.5-18.0); MEAN CELL VOLUME 87 fl (80.0-100.0); MEAN CORPUSCULAR HEMOGLOBIN 28 pg (27-31); MEAN CORPUSCULAR HGB CONC 32 g/dl (33.0-37.0); MEAN PLATELET VOLUME 9.1 fl (7.4-10.4); PLATELET COUNT 398 K/mm3 (130-400); RED BLOOD COUNT 3.42 M/mm3 (4.20-5.60); REDCELL DISTRIBUTION WIDTH-CV 14.5 % (11.5-14.5)
[2021-10-02 10:10] LABS: EOSINOPHIL 10 % (0-4); LYMPHOCYTE 38 % (20.0-51.0); NEUTROPHILS 44 % (42.0-75.2); PLATELET ESTIMATE NORMAL (NORMAL)
[2021-10-02 20:50] LABS: C-REACTIVE PROTEIN 6.14 mg/dL (0.00-0.50)
[~2021-10-09] VITALS: Ht 170.2 cm; Wt 88.5 kg
[~2021-10-09 09:00] MED LIST changes: +PROSCAR 5MG5 MG PO
[2021-10-09 11:00] VITALS: BP 125/57; PULSE 81; TEMP 97.8
[2021-10-09 11:02] LABS: BASO % 0.4 % (0.0-2.0); EOS # 0.4 K/mm3 (0.0-0.7); EOS % 8.5 % (0.0-4.0); GRAN # 2.9 K/mm3 (1.4-6.5); GRAN % 56.5 % (42.2-75.2); LYMPH # 1.2 K/mm3 (1.2-3.4); LYMPH % 23.9 % (20.0-51.0); MEAN CELL VOLUME 87 fl (80.0-100.0); MEAN CORPUSCULAR HGB CONC 32 g/dl (33.0-37.0); MEAN PLATELET VOLUME 9.4 fl (7.4-10.4); MONO # 0.5 K/mm3 (0.1-0.6); MONO % 10.5 % (1.7-9.3); PLATELET COUNT 353 K/mm3 (130-400); RED BLOOD COUNT 3.26 M/mm3 (4.20-5.60); REDCELL DISTRIBUTION WIDTH-CV 14.8 % (11.5-14.5)
[2021-10-09 11:07] LABS: HEMATOCRIT 28.5 % (42.0-52.0); MEAN CORPUSCULAR HEMOGLOBIN 28 pg (27-31)
[2021-10-09 11:11] LABS: ALBUMIN 3.1 gm/dL (3.5-5.0); BILIRUBIN,TOTAL 0.3 mg/dL (0.2-1.2); C-REACTIVE PROTEIN 19.23 mg/dL (0.00-0.50); CALCIUM 8.9 mg/dL (8.4-10.2); CREATININE, serum 1.07 mg/dL (0.72-1.25); POTASSIUM 3.6 mmol/L (3.5-4.5); TOTAL PROTEIN 7.8 gm/dL (6.2-8.1)
[2021-10-09 11:33] LABS: ERYTHROCYTE SEDIMENTATION RATE 114 mm/hr (0-30)
--- NOTE | 2021-10-16 09:43 | NUR ---
Per pt report he is at [facility] inpt.Pt reports he had hip surg yesterday.
[2021-10-21] MEDS ORDERED: ROXICODONE 55 MG/TAB PO (17:49)
[2021-10-21] MEDS ORDERED: NATURAL IRON65 MG PO (17:50)
[2021-10-21] MEDS ORDERED: TYLENOL 500MG500 MG PO (17:50)
[2021-10-21] MEDS ORDERED: COLACE 100100 MG/CAP PO (17:50)
== END 2021-10-16 09:44 ==
LOC: EUO 09:00
PROVIDERS: Family Medicine
DX: T84.59XA Infection and inflammatory reaction due to other internal joint prosthesis, initial encounter (principal); Z96.649 Presence of unspecified artificial hip joint

== ENCOUNTER 2021-10-26 11:54 | Emergency (ER) | payer BC ==
[~2021-10-26] VITALS: Ht 170.2 cm; Wt 84.1 kg
[~2021-10-26 11:54] MED LIST changes: +COLACE 100100 MG/CAP PO; +ROXICODONE 55 MG/TAB PO; +TYLENOL 500MG500 MG PO
[2021-10-26 12:50] LABS: MEAN CELL VOLUME 87 fl (80.0-100.0); MEAN CORPUSCULAR HGB CONC 33 g/dl (33.0-37.0); MEAN PLATELET VOLUME 9.7 fl (7.4-10.4); PLATELET COUNT 314 K/mm3 (130-400); RED BLOOD COUNT 2.72 M/mm3 (4.20-5.60); REDCELL DISTRIBUTION WIDTH-CV 14.8 % (11.5-14.5)
[2021-10-26 12:57] LABS: HEMATOCRIT 23.6 % (42.0-52.0); HEMOGLOBIN 7.7 g/dl (13.5-18.0); MEAN CORPUSCULAR HEMOGLOBIN 28 pg (27-31)
[2021-10-26 13:10] LABS: ALBUMIN 2.8 gm/dL (3.5-5.0); BILIRUBIN,TOTAL 0.3 mg/dL (0.2-1.2); CALCIUM 7.9 mg/dL (8.4-10.2); CREATININE, serum 1.45 mg/dL (0.72-1.25); POTASSIUM 3.5 mmol/L (3.5-4.5); TOTAL PROTEIN 6.5 gm/dL (6.2-8.1)
[2021-10-26 13:13] LABS: BAND 14 % (0-10); BASOPHIL 1 % (0-2); EOSINOPHIL 3 % (0-4); HYPOCHROMIA 1+; LYMPHOCYTE 4 % (20.0-51.0); MYELOCYTE 2 % (0-0); NEUTROPHILS 70 % (42.0-75.2)
[2021-10-26 13:14] LABS: MICROCYTOSIS 1+; PLATELET ESTIMATE NORMAL (NORMAL)
[2021-10-26 16:30] VITALS: TEMP 99
[2021-10-26 16:51] VITALS: BP 91/44; PULSE 93
== END 2021-10-26 16:45 | disposition short-term general hospital (02) ==
LOC: COL.ER 11:54
PROVIDERS: Personal Emergency Response Attendant
DX: A41.9 Sepsis, unspecified organism (principal); J18.9 Pneumonia, unspecified organism; N28.9 Disorder of kidney and ureter, unspecified
CPT/HCPCS: J2543; J3370; J7030; J7050; J7060

== ENCOUNTER 2021-10-28 09:00 | Outpatient (RCR) | payer BC ==
[2021-08-14 11:46] VITALS: BP 103/64; PULSE 91; TEMP 99.6
--- NOTE | 2021-10-21 08:30 | NUR ---
Received a phone call from the patient this a.m. He reported that he is unable to flush his PICC. Patient will be receiving home administration of IV antibiotics for at least another 6 weeks. Patient reported to the express unit. Patient's right upper arm PICC is intact. Flush port with 10 mL normal saline. Without difficulty or resistance. Good blood return noted. Sterile dressing change performed with PICC insertion site cleansed with ChloraPrep x1, chlorhexidine impregnated disc applied, skin prep, StatLock, and Tegaderm applied. No signs or symptoms of IV complications reported. Patient to return next Thursday for PICC cares. Patient voiced understanding of instructions.
[~2021-10-28] VITALS: Ht 170.2 cm; Wt 88.8 kg
== END 2021-10-28 15:14 | disposition home or self-care (01) ==
LOC: EUO 09:00
DX: M00.9 Pyogenic arthritis, unspecified (principal)

== ENCOUNTER 2021-11-11 09:00 | Outpatient (RCR) | payer BC ==
[2021-11-04 11:54] VITALS: BP 1298/76; PULSE 75; TEMP 97.9
[2021-11-04 12:13] LABS: BASO % 0.2 % (0.0-2.0); EOS # 0.3 K/mm3 (0.0-0.7); EOS % 6.2 % (0.0-4.0); GRAN # 2.7 K/mm3 (1.4-6.5); GRAN % 64.2 % (42.2-75.2); LYMPH # 0.7 K/mm3 (1.2-3.4); LYMPH % 16.8 % (20.0-51.0); MEAN CELL VOLUME 89 fl (80.0-100.0); MEAN CORPUSCULAR HGB CONC 32 g/dl (33.0-37.0); MEAN PLATELET VOLUME 9.8 fl (7.4-10.4); MONO # 0.5 K/mm3 (0.1-0.6); MONO % 11.4 % (1.7-9.3); PLATELET COUNT 349 K/mm3 (130-400)
[2021-11-04 12:14] LABS: HEMATOCRIT 23.9 % (42.0-52.0); HEMOGLOBIN 7.6 g/dl (13.5-18.0); MEAN CORPUSCULAR HEMOGLOBIN 28 pg (27-31)
[2021-11-04 12:30] LABS: ALBUMIN 3.1 gm/dL (3.5-5.0); BILIRUBIN,TOTAL 0.1 mg/dL (0.2-1.2); CALCIUM 8.3 mg/dL (8.4-10.2); CREATININE, serum 0.77 mg/dL (0.72-1.25); POTASSIUM 4.1 mmol/L (3.5-4.5); TOTAL PROTEIN 6.7 gm/dL (6.2-8.1)
[~2021-11-11] VITALS: Ht 170.2 cm; Wt 88.8 kg
--- NOTE | 2021-11-11 12:10 | NUR ---
Left a voicemail for patient around 1030 to come to the [facility] unit for PICC cares.Patient arrived around noon. Patient removed PICC dressing. Patient reported that he removed his drain from his left hip. PICC intact right upper arm. Sterile dressing change performed with insertion site cleansed with ChloraPrep x1, chlorhexidine impregnated disc applied, skin prep, StatLock, and Tegaderm applied. Patient's right upper arm has an area of swelling noted. This area is where he had a blister. No redness noted. No discomfort. Patient to return next Thursday for PICC cares. Patient voiced understanding of instructions.
[2021-11-11 12:26] LABS: BASO % 0.5 % (0.0-2.0); EOS # 0.3 K/mm3 (0.0-0.7); EOS % 6.9 % (0.0-4.0); GRAN # 2.1 K/mm3 (1.4-6.5); GRAN % 55.1 % (42.2-75.2); HEMATOCRIT 25.3 % (42.0-52.0); LYMPH # 0.9 K/mm3 (1.2-3.4); LYMPH % 22.7 % (20.0-51.0); MEAN CELL VOLUME 89 fl (80.0-100.0); MEAN CORPUSCULAR HEMOGLOBIN 28 pg (27-31); MEAN CORPUSCULAR HGB CONC 32 g/dl (33.0-37.0); MEAN PLATELET VOLUME 9.5 fl (7.4-10.4); MONO # 0.6 K/mm3 (0.1-0.6); MONO % 14.5 % (1.7-9.3); PLATELET COUNT 333 K/mm3 (130-400); RED BLOOD COUNT 2.85 M/mm3 (4.20-5.60)
[2021-11-11 12:35] VITALS: BP 121/66; PULSE 78; TEMP 98.2
[2021-11-11 12:46] LABS: ALBUMIN 3.2 gm/dL (3.5-5.0); BILIRUBIN,TOTAL 0.3 mg/dL (0.2-1.2); CALCIUM 8.4 mg/dL (8.4-10.2); CREATININE, serum 0.88 mg/dL (0.72-1.25); POTASSIUM 3.7 mmol/L (3.5-4.5); TOTAL PROTEIN 6.9 gm/dL (6.2-8.1)
== END 2021-11-14 11:40 | disposition home or self-care (01) ==
LOC: EUO 09:00
PROVIDERS: Family Medicine; Internal Medicine Infectious Disease
DX: A41.9 Sepsis, unspecified organism (principal); M00.9 Pyogenic arthritis, unspecified; J98.11 Atelectasis
CPT/HCPCS: C1751; C1892

== ENCOUNTER 2021-11-25 09:00 | Outpatient (RCR) | payer BC ==
[2021-11-18 10:15] VITALS: BP 122/67; PULSE 80; TEMP 97.7
[2021-11-18 10:45] LABS: BASO % 0.6 % (0.0-2.0); EOS # 0.3 K/mm3 (0.0-0.7); EOS % 9.3 % (0.0-4.0); GRAN # 1.9 K/mm3 (1.4-6.5); GRAN % 55.2 % (42.2-75.2); LYMPH # 0.8 K/mm3 (1.2-3.4); LYMPH % 24.1 % (20.0-51.0); MEAN CELL VOLUME 88 fl (80.0-100.0); MEAN CORPUSCULAR HGB CONC 32 g/dl (33.0-37.0); MEAN PLATELET VOLUME 9.6 fl (7.4-10.4); MONO # 0.4 K/mm3 (0.1-0.6); MONO % 10.5 % (1.7-9.3); PLATELET COUNT 330 K/mm3 (130-400); RED BLOOD COUNT 2.97 M/mm3 (4.20-5.60); REDCELL DISTRIBUTION WIDTH-CV 15.2 % (11.5-14.5)
[2021-11-18 10:50] LABS: HEMATOCRIT 26.1 % (42.0-52.0); HEMOGLOBIN 8.3 g/dl (13.5-18.0); MEAN CORPUSCULAR HEMOGLOBIN 28 pg (27-31)
[2021-11-18 11:00] LABS: ALBUMIN 3.4 gm/dL (3.5-5.0); BILIRUBIN,TOTAL 0.2 mg/dL (0.2-1.2); CALCIUM 8.4 mg/dL (8.4-10.2); CREATININE, serum 0.9 mg/dL (0.72-1.25); POTASSIUM 3.6 mmol/L (3.5-4.5); TOTAL PROTEIN 7.1 gm/dL (6.2-8.1)
[~2021-11-25] VITALS: Ht 170.2 cm; Wt 88.8 kg
[2021-11-25] MEDS ORDERED: ELIQUIS 2.5 PO (09:23)
[2021-11-25 09:31] VITALS: BP 134/77; PULSE 85; TEMP 97.9
[2021-11-25 09:39] LABS: BASO % 0.3 % (0.0-2.0); EOS # 0.4 K/mm3 (0.0-0.7); EOS % 12.8 % (0.0-4.0); GRAN # 1.9 K/mm3 (1.4-6.5); LYMPH # 0.7 K/mm3 (1.2-3.4); LYMPH % 19.8 % (20.0-51.0); MEAN CELL VOLUME 86 fl (80.0-100.0); MEAN CORPUSCULAR HGB CONC 32 g/dl (33.0-37.0); MEAN PLATELET VOLUME 9.3 fl (7.4-10.4); MONO # 0.3 K/mm3 (0.1-0.6); MONO % 8.8 % (1.7-9.3); PLATELET COUNT 342 K/mm3 (130-400); RED BLOOD COUNT 2.94 M/mm3 (4.20-5.60); REDCELL DISTRIBUTION WIDTH-CV 14.7 % (11.5-14.5)
[2021-11-25 09:40] LABS: HEMATOCRIT 25.4 % (42.0-52.0); HEMOGLOBIN 8.1 g/dl (13.5-18.0); MEAN CORPUSCULAR HEMOGLOBIN 28 pg (27-31)
[2021-11-25 10:03] LABS: ALBUMIN 3.4 gm/dL (3.5-5.0); BILIRUBIN,TOTAL 0.3 mg/dL (0.2-1.2); CALCIUM 8.9 mg/dL (8.4-10.2); CREATININE, serum 1.22 mg/dL (0.72-1.25); POTASSIUM 3.6 mmol/L (3.5-4.5); TOTAL PROTEIN 7.5 gm/dL (6.2-8.1)
[2021-11-28 17:37] LABS: C-REACTIVE PROTEIN 12.91 mg/dL (0.00-0.50)
--- NOTE | 2021-12-02 08:53 | NUR ---
Pt arrived for PICC cares to [facility].Per pt report his PICC line "fell out" Thursday evening.ELEAZAR Nettles notified.Pt had lab drawn by lab.Express unit act will be closed due to no central line present.
--- NOTE | 2021-12-02 08:55 | NUR ---
Patient here in the [facility] Unit. reported that his PICC fell out on Thursday at 0200 in the am. He had taken a shower and then found the PICC out most of the way so he removed it. Arm circumference is 31. site is healed. no dressing noted. no signs or symptoms of complications noted.
[2021-12-02 09:04] LABS: BASO % 0.4 % (0.0-2.0); EOS # 0.4 K/mm3 (0.0-0.7); EOS % 8.9 % (0.0-4.0); GRAN # 2.5 K/mm3 (1.4-6.5); GRAN % 54.5 % (42.2-75.2); LYMPH # 1.1 K/mm3 (1.2-3.4); LYMPH % 24.6 % (20.0-51.0); MEAN CELL VOLUME 89 fl (80.0-100.0); MEAN CORPUSCULAR HGB CONC 31 g/dl (33.0-37.0); MEAN PLATELET VOLUME 9.4 fl (7.4-10.4); MONO # 0.5 K/mm3 (0.1-0.6); MONO % 10.9 % (1.7-9.3); PLATELET COUNT 362 K/mm3 (130-400); RED BLOOD COUNT 2.93 M/mm3 (4.20-5.60); REDCELL DISTRIBUTION WIDTH-CV 15.3 % (11.5-14.5)
[2021-12-02 09:13] LABS: HEMATOCRIT 26.2 % (42.0-52.0); HEMOGLOBIN 8.1 g/dl (13.5-18.0); MEAN CORPUSCULAR HEMOGLOBIN 28 pg (27-31)
[2021-12-02 09:22] LABS: ALBUMIN 3.3 gm/dL (3.5-5.0); BILIRUBIN,TOTAL 0.1 mg/dL (0.2-1.2); C-REACTIVE PROTEIN 8.4 mg/dL (0.00-0.50); CALCIUM 8.3 mg/dL (8.4-10.2); CREATININE, serum 1.13 mg/dL (0.72-1.25); POTASSIUM 3.8 mmol/L (3.5-4.5); TOTAL PROTEIN 7.2 gm/dL (6.2-8.1)
== END 2021-12-02 09:46 | disposition home or self-care (01) ==
LOC: EUO 09:00
PROVIDERS: Family Medicine; Internal Medicine Infectious Disease
DX: T84.59XD Infection and inflammatory reaction due to other internal joint prosthesis, subsequent encounter (principal); R78.81 Bacteremia; Z96.649 Presence of unspecified artificial hip joint

== ENCOUNTER → 2021-12-12 | Outpatient (CLI) | payer BC ==
[~2021-12-12] MED LIST changes: +ELIQUIS 2.5 PO
[2021-12-12 15:23] LABS: BASO % 0.5 % (0.0-2.0); EOS # 0.4 K/mm3 (0.0-0.7); EOS % 10.4 % (0.0-4.0); GRAN # 2.3 K/mm3 (1.4-6.5); GRAN % 59.3 % (42.2-75.2); HEMATOCRIT 29.1 % (42.0-52.0); HEMOGLOBIN 8.9 g/dl (13.5-18.0); LYMPH # 0.8 K/mm3 (1.2-3.4); LYMPH % 19.7 % (20.0-51.0); MEAN CELL VOLUME 89 fl (80.0-100.0); MEAN CORPUSCULAR HEMOGLOBIN 27 pg (27-31); MEAN CORPUSCULAR HGB CONC 31 g/dl (33.0-37.0); MEAN PLATELET VOLUME 8.8 fl (7.4-10.4); MONO # 0.4 K/mm3 (0.1-0.6); MONO % 9.8 % (1.7-9.3); PLATELET COUNT 334 K/mm3 (130-400); RED BLOOD COUNT 3.26 M/mm3 (4.20-5.60); REDCELL DISTRIBUTION WIDTH-CV 15.6 % (11.5-14.5)
[2021-12-12 15:43] LABS: ALBUMIN 3.8 gm/dL (3.5-5.0); BILIRUBIN,TOTAL 0.2 mg/dL (0.2-1.2); C-REACTIVE PROTEIN 4.52 mg/dL (0.00-0.50); CALCIUM 8.8 mg/dL (8.4-10.2); CREATININE, serum 1.06 mg/dL (0.72-1.25); TOTAL PROTEIN 7.9 gm/dL (6.2-8.1)
[2021-12-12 15:53] LABS: ERYTHROCYTE SEDIMENTATION RATE 65 mm/hr (0-30)
== END ==
LOC: COL.LAB 15:02
DX: T84.59XA Infection and inflammatory reaction due to other internal joint prosthesis, initial encounter (principal); Z96.649 Presence of unspecified artificial hip joint

== ENCOUNTER → 2021-12-19 | Outpatient (CLI) | payer BC ==
[2021-12-19 16:36] LABS: BASO % 0.5 % (0.0-2.0); EOS # 0.4 K/mm3 (0.0-0.7); EOS % 8.9 % (0.0-4.0); GRAN # 2.6 K/mm3 (1.4-6.5); GRAN % 66.5 % (42.2-75.2); LYMPH # 0.6 K/mm3 (1.2-3.4); LYMPH % 15.2 % (20.0-51.0); MEAN CELL VOLUME 88 fl (80.0-100.0); MEAN CORPUSCULAR HGB CONC 31 g/dl (33.0-37.0); MEAN PLATELET VOLUME 9.5 fl (7.4-10.4); MONO # 0.3 K/mm3 (0.1-0.6); MONO % 8.6 % (1.7-9.3); PLATELET COUNT 349 K/mm3 (130-400); RED BLOOD COUNT 3.29 M/mm3 (4.20-5.60); REDCELL DISTRIBUTION WIDTH-CV 15.3 % (11.5-14.5)
[2021-12-19 16:48] LABS: ALBUMIN 3.6 gm/dL (3.5-5.0); BILIRUBIN,TOTAL 0.2 mg/dL (0.2-1.2); C-REACTIVE PROTEIN 6.78 mg/dL (0.00-0.50); CALCIUM 8.6 mg/dL (8.4-10.2); CREATININE, serum 1.06 mg/dL (0.72-1.25); TOTAL PROTEIN 8.2 gm/dL (6.2-8.1)
[2021-12-19 16:53] LABS: HEMOGLOBIN 8.9 g/dl (13.5-18.0); MEAN CORPUSCULAR HEMOGLOBIN 27 pg (27-31)
[2021-12-19 17:09] LABS: ERYTHROCYTE SEDIMENTATION RATE 75 mm/hr (0-30)
== END ==
LOC: COL.LAB 15:55
PROVIDERS: Internal Medicine Infectious Disease
DX: T84.59XA Infection and inflammatory reaction due to other internal joint prosthesis, initial encounter (principal); Z96.649 Presence of unspecified artificial hip joint

== ENCOUNTER → 2022-01-07 | Outpatient (CLI) | payer BC | LOC: COL.VAS 08:02 | DX: T84.59XD Infection and inflammatory reaction due to other internal joint prosthesis, subsequent encounter (principal); Z96.649 Presence of unspecified artificial hip joint ==

== ENCOUNTER → 2022-04-04 | Outpatient (CLI) | payer BC ==
[2022-04-04 16:49] LABS: SYNOVIAL FLUID COLOR RED; SYNOVIAL FLUID RBC 51000 /mm3 (0-0); SYNOVIAL FLUID WBC 34320 /mm3 (200-600)
[2022-04-04 16:50] LABS: SYNOVIAL FL. MONONUCLEAR 1.7 % (0-75); SYNOVIAL FLUID APPEARANCE TURBID
== END ==
LOC: COL.RAD 08:50
PROVIDERS: Internal Medicine Infectious Disease
DX: T84.59XD Infection and inflammatory reaction due to other internal joint prosthesis, subsequent encounter (principal); Z96.649 Presence of unspecified artificial hip joint
CPT/HCPCS: Q9967